=== PATIENT | male | born 1940 | race Caucasian/White ===

== ENCOUNTER 2016-06-22 11:18 | Emergency (ER) | payer MEDICARE, BC ==
--- NOTE | 2016-06-22 11:38 | ED.ADGEN ---
Adult General HPI HPI Patient is a 76-year-old man, history of hypertension, type 2 diabetes mellitus , with a recent diagnosis of colon cancer several months ago for which he has not sought treatment, who presents the emergency department via EMS with report of progressive weakness. Patient states that he's become progressively weaker, describes it as a weakness all over, and today his was unable to help him out of bed. He states he has been expressing diarrhea, also some abdominal cramping and pain, no nausea, no vomiting, states he has had something of a decreased appetite, denies any chest pain or shortness breath. Patient noted be in atrial fibrillation by EMS, he has no history of atrial fibrillation per his report. Patient states he has been compliant with his medications but he is a limited historian, he is cared for by his . Patient is able to state the date and place. Denies any focal weakness numbness or tingling, any injuries. No vision changes or headache. Review of Systems Review of Systems Constitutional: Denies fever or chills [] generalized weakness. Eyes: Denies change in visual acuity, redness, or eye pain [] HENT: Denies nasal congestion or sore throat [] Respiratory: Denies cough or shortness of breath [] Cardiovascular: No additional information not addressed in HPI [] GI: Abdominal cramping, diarrhea, no nausea, vomiting bloody stools or bloody emesis. : Denies dysuria or hematuria [] Musculoskeletal: Denies back pain or joint pain [] Integument: Denies rash or skin lesions [] Neurologic: Denies headache, focal weakness or sensory changes [] Endocrine: Denies polyuria or polydipsia [] Current Medications Current Medications Current Medications Medications (Trade) Dose Ordered Sig/Connor Start Time Stop Time Status Last Admin Dose Admin Ceftriaxone Sodium 1 gm/ Sodium Chloride 50 ml @ 100 mls/hr 1X ONCE 06/22/16 16:30 06/22/16 16:59 Iohexol 75 ml 75 ml 1X ONCE 06/22/16 12:45 06/22/16 12:46 DC 06/22/16 14:09 75 ML Metronidazole (Flagyl Premix) 100 ml @ 200 mls/hr 1X ONCE 06/22/16 16:30 06/22/16 16:59 Potassium Chloride 40 meq 40 meq 1X ONCE 06/22/16 14:30 06/22/16 14:31 DC 06/22/16 14:30 40 MEQ Potassium Chloride/Sodium Chloride (KCl 40 Meq-NS 1,000 ml Iv Soln) 1,000 ml @ 75 mls/hr 1X ONCE 06/22/16 14:00 06/23/16 03:19 06/22/16 13:48 75 MLS/HR Allergies Allergies Allergies Coded Allergies Type Severity Reaction Last Updated Verified No Known Drug Allergies 06/22/16 No Physical Exam Physical Exam Constitutional: Well developed, well nourished, no acute distress, ill in appearance. HENT: Normocephalic, atraumatic, bilateral external ears normal, oropharynx moist, no oral exudates, nose normal. [] Eyes: PERRLA, EOMI, conjunctiva normal, no discharge. [] Neck: Normal range of motion, no tenderness, supple, no stridor. [] Cardiovascular: Regular rhythm, S1, S2, no rubs or gallops, soft heart sounds. [ ] Lungs & Thorax: Diminished breath sounds at bases bilaterally, mild scattered wheezing. No rales. [] Abdomen: Bowel sounds normal, soft, obese, mild tenderness diffusely, no rebound , rigidity, no guarding, no masses, no pulsatile masses. [] Skin: Warm, dry, no erythema, no rash. Psych of erythema, and small ulcer right buttock. Back: No tenderness, no CVA tenderness. [] Extremities: No tenderness, no cyanosis, no clubbing, ROM intact, patient with erythema and swelling noted to the right lower extremity, with a healing ulcer noted on the lateral aspect of the right foot, which is chronic per the patient. Neurologic: Alert and oriented X 3, normal motor function, normal sensory function, no focal deficits noted. [] Psychologic: Affect normal, judgement normal, mood normal. [] Current Patient Data Vital Signs Vital Signs Date Time Temp Pulse Resp B/P Pulse Ox O2 Delivery O2 Flow Rate FiO2 06/22/16 15:32 93 14 136/50 96 06/22/16 11:18 98.7 Room Air Lab Results Laboratory Tests Test 06/22/16 12:30 06/22/16 12:55 06/22/16 13:16 White Blood Count 19.7x10^3/uL (4.0-11.0) H Red Blood Count 4.13x10^6/uL (4.30-5.70) L Hemoglobin 13.1g/dL (13.0-17.5) Hematocrit 38.6% (39.0-53.0) L Mean Corpuscular Volume 94fL (79-100) Mean Corpuscular Hemoglobin 32pg (25-35) Mean Corpuscular Hemoglobin Concent 34g/dL (31-37) Red Cell Distribution Width 13.7% (11.5-14.5) Platelet Count 394x10^3/uL (140-400) Neutrophils (%) (Auto) 74% (31-73) H Lymphocytes (%) (Auto) 17% (24-48) L Monocytes (%) (Auto) 8% (0-9) Eosinophils (%) (Auto) 1% (0-3) Basophils (%) (Auto) 1% (0-3) Neutrophils # (Auto) 14.5x10^3uL (1.8-7.7) H Lymphocytes # (Auto) 3.4x10^3/uL (1.0-4.8) Monocytes # (Auto) 1.5x10^3/uL (0.0-1.1) H Eosinophils # (Auto) 0.1x10^3/uL (0.0-0.7) Basophils # (Auto) 0.2x10^3/uL (0.0-0.2) Segmented Neutrophils % 67% (35-66) H Band Neutrophils % 2% (0-9) Lymphocytes % 20% (24-48) L Monocytes % 9% (0-10) Eosinophils % 1% (0-5) Basophils % 1% (0-3) Toxic Granulation Present Platelet Estimate Adequate (ADEQUATE) Platelet Clumps, EDTA Present Microcytosis Present Urine Collection Type U cath Urine Color Yellow Urine Clarity Clear Urine pH 5.5 Urine Specific Mays <=1.005 Urine Protein 30 mg/dl (NEG-TRACE) Urine Glucose (UA) Negmg/dL (NEG) Urine Ketones (Stick) 15mg/dL (NEG) Urine Blood Small (NEG) Urine Nitrite Neg (NEG) Urine Bilirubin Neg (NEG) Urine Urobilinogen Dipstick 0.2mg/dL (0.2 mg/dL) Urine Leukocyte Esterase Neg (NEG) Urine RBC Rare/HPF (0-2) Urine WBC Rare/HPF (0-4) Urine Squamous Epithelial Cells None/LPF Urine Transitional Epithelial Cells Few/LPF Urine Bacteria 0/HPF (0-FEW) Urine Opiates Screen Neg (NEG) Urine Methadone Screen Neg (NEG) Urine Barbiturates Neg (NEG) Urine Phencyclidine Screen Neg (NEG) Urine Amphetamine/Methamphetamine Neg (NEG) Urine Benzodiazepines Screen Neg (NEG) Urine Cocaine Screen Neg (NEG) Urine Cannabinoids Screen Neg (NEG) Urine Ethyl Alcohol Neg (NEG) Sodium Level 141mmol/L (136-145) Potassium Level 2.3mmol/L (3.5-5.1) *L Chloride Level 101mmol/L (98-107) Carbon Dioxide Level 23mmol/L (21-32) Anion Gap 17 (6-14) H Blood Urea Nitrogen 23mg/dL (8-26) Creatinine 1.9mg/dL (0.7-1.3) H Estimated GFR (Cockcroft-Gault) 34.5 BUN/Creatinine Ratio 12 (6-20) Glucose Level 119mg/dL (70-99) H Lactic Acid Level 0.9mmol/L (0.4-2.0) Calcium Level 8.6mg/dL (8.5-10.1) Magnesium Level 2.4mg/dL (1.8-2.4) Total Bilirubin 0.6mg/dL (0.2-1.0) Aspartate Amino Transferase (AST) 14U/L (15-37) L Alanine Aminotransferase (ALT) 18U/L (16-63) Alkaline Phosphatase 74U/L (46-116) Troponin I Quantitative < 0.017ng/mL (0-0.055) FA-Msg-W-Type Natriuretic Peptide 3627pg/mL (0-449) H Total Protein 7.4g/dL (6.4-8.2) Albumin 2.5g/dL (3.4-5.0) L Albumin/Globulin Ratio 0.5 (1.0-1.7) L EKG EKG EC: Sinus rhythm, heart rate 91 beats minute, APCs noted with right axis deviation, low limb lead voltage noted, contour normality is noted in the anterior septal leads and inferior leads, QTc of 41, W[place] 1:30, QRS of 134, abnormal ECG, does not meet STEMI criteria. As interpreted by me. Radiology/Procedures Radiology/Procedures [] [address] [address] IMAGING REPORT Signed PATIENT: SHAWNA GAY ACCOUNT: [id number] : 1940 LOCATION: ER AGE: 76 SEX: M EXAM STATUS: REG ER ORD. PHYSICIAN: ISMA RAPHAEL DO REASON: Weakness, short of air, congestion, cough PROCEDURE: PORTABLE CHEST 1V Portable AP view CXR: Clinical indications: Weakness. Congestion. Cough. Shortness of air.. Comparison: June 23, 2009. Findings: There is nonvisualization of the left hemidiaphragm which may be due to lordotic positioning. This was seen previously. However, left lung base infiltrate cannot be excluded. Therefore, recommend PA and lateral views of the chest when the patient is clinically capable. The right lung field remains clear. No pleural effusion or pneumothorax is seen. The heart size and mediastinum and pulmonary vasculature and both jaelyn are stable. Old left clavicular fracture is seen. IMPRESSION: Nonvisualization of the left hemidiaphragm most likely due to lordotic positioning. If there is clinical concern for a left lung base infiltrate, then this may be further evaluated with PA and lateral view chest x-ray study when the patient is clinically capable. DICTATED AND SIGNED BY: KENJI DELCID MD DATE: 06/22/16 1321 CC: SARAH MARROQUIN MD; ISMA RAPHAEL DO ~ Impressions: [address] [address] IMAGING REPORT Signed PATIENT: SHAWNA GAY ACCOUNT: [id number] : 1940 LOCATION: ER AGE: 76 SEX: M EXAM STATUS: REG ER ORD. PHYSICIAN: ISMA RAPHAEL DO REASON: swelling/pain PROCEDURE: VENOUS LOWER EXTREMITY RIGHT Right leg venous Doppler study: Clinical indications: Right leg swelling and pain. Findings: Duplex sonography (including casper scale evaluation and color flow and waveform spectral analysis) of the proximal aspect of the greater saphenous vein and proximal aspect of the profunda femoral vein and the entire length of the common femoral and superficial femoral and popliteal veins and the tibioperoneal trunk and the proximal aspect of the posterior tibial and peroneal veins of the right leg was performed. Normal compressibility, augmentation of color Doppler flow after calf compression, and respiratory variation of Doppler flow is seen. Thus, there are no sonographic findings of deep venous thrombosis within these veins. Impression: There are no sonographic findings of deep venous thrombosis within the veins discussed above of the right lower extremity. DICTATED AND SIGNED BY: KENJI DELCID MD DATE: 06/22/16 6137 CC: SARAH MARROQUIN MD; ISMA RAPHAEL DO ~ Course & Med Decision Making Course & Med Decision Making Pertinent Labs and Imaging studies reviewed. (See chart for details) Patient's imaging reveals evidence of diffuse colitis, with underlying malignancy noted, no free air-fluid fluid. Laboratory studies reveal a leukocytosis, with bandemia, dehydration, and a hypokalemia at 2.3. Patient received IV and oral repletion in the ED, I did discuss findings with patient and at bedside, patient is agreeable for admission. I did discuss findings as above with Dr. Espinosa, he is request the patient be transferred for permission to [place], as oncology and GI are not available at [place]. I did discuss findings as above with patient and at bedside, they're agreeable with this transfer, findings as above were discussed with Dr. West of internal medicine, patient accepted to his service as a full admission to the medical telemetry floor. Paperwork was completed. Patient stable on the monitor, in sinus rhythm, waiting transfer to [facility]. Final Impression Final Impression [] Problems: (1) Colitis (2) Hypokalemia (3) Diarrhea Qualifiers: Qualified Code: R19.7 - Diarrhea, unspecified Dragon Disclaimer Dragon Disclaimer This electronic medical record was generated, in whole or in part, using a voice recognition dictation system. Departure Disposition: 05 XFER OTHER Condition: STABLE ISMA RAPHAEL DO Jun 22, 2016 11:38
[2016-06-22] MEDS ORDERED: IOHEXOL 300 MG/ML 75 ML VIAL. IV ONE (12:45)
[2016-06-22 12:47] LABS: BASO # 0.2 x10^3/uL (0.0-0.2); BASO % 1 % (0-3); EOS # 0.1 x10^3/uL (0.0-0.7); EOS % 1 % (0-3); HEMATOCRIT 38.6 % (39.0-53.0); HEMOGLOBIN 13.1 g/dL (13.0-17.5); LYMPH # 3.4 x10^3/uL (1.0-4.8); LYMPH % 17 % (24-48); MEAN CORPUSCULAR HEMOGLOBIN 32 pg (25-35); MEAN CORPUSCULAR HGB CONC 34 g/dL (31-37); MEAN CORPUSCULAR VOLUME 94 fL (79-100); MONO # 1.5 x10^3/uL (0.0-1.1); MONO % 8 % (0-9); NEUT # 14.5 x10^3uL (1.8-7.7); NEUT % 74 % (31-73); PLATELET COUNT 394 x10^3/uL (140-400); RED BLOOD COUNT 4.13 x10^6/uL (4.30-5.70); RED CELL DISTRIBUTION WIDTH 13.7 % (11.5-14.5); WHITE BLOOD COUNT 19.7 x10^3/uL (4.0-11.0)
[2016-06-22 13:17] LABS: BARBITURATES NEG (NEG); BENZODIAZEPINES NEG (NEG); CANNABINOIDS NEG (NEG); COCAINE NEG (NEG); METHADONE NEG (NEG); OPIATES NEG (NEG); PHENCYCLIDINE NEG (NEG)
[2016-06-22 13:18] LABS: AMPHETAMINE/METHAMPHETAMINE NEG (NEG)
[2016-06-22 13:19] LABS: BILIRUBIN,URINE NEG (NEG); CLARITY,URINE CLEAR; COLOR,URINE YELLOW; GLUCOSE,URINE NEG (NEG)
[2016-06-22 13:20] LABS: BACTERIA,URINE 0 /HPF (0-FEW); NITRITE,URINE NEG (NEG); RBC,URINE RARE /HPF (0-2); UROBILINOGEN,URINE 0.2 mg/dL (0.2 mg/dL); WBC,URINE RARE /HPF (0-4)
--- NOTE | 2016-06-22 13:22 | RAD ---
Right leg venous Doppler study: Clinical indications: Right leg swelling and pain. Findings: Duplex sonography (including casper scale evaluation and color flow and waveform spectral analysis) of the proximal aspect of the greater saphenous vein and proximal aspect of the profunda femoral vein and the entire length of the common femoral and superficial femoral and popliteal veins and the tibioperoneal trunk and the proximal aspect of the posterior tibial and peroneal veins of the right leg was performed. Normal compressibility, augmentation of color Doppler flow after calf compression, and respiratory variation of Doppler flow is seen. Thus, there are no sonographic findings of deep venous thrombosis within these veins. Impression: There are no sonographic findings of deep venous thrombosis within the veins discussed above of the right lower extremity.
[2016-06-22 13:26] LABS: % BANDS 2 % (0-9); % BASOS 1 % (0-3); % EOS 1 % (0-5); % LYMPHS 20 % (24-48); % MONOS 9 % (0-10); % SEGS 67 % (35-66); PLATELET CLUMP PRESENT; PLT ESTIMATE ADEQUATE (ADEQUATE)
[2016-06-22 13:27] LABS: MICROCYTOSIS PRESENT; TOXIC GRANULATION PRESENT
--- NOTE | 2016-06-22 13:33 | RAD ---
Portable AP view CXR: Clinical indications: Weakness. Congestion. Cough. Shortness of air.. Comparison: June 23, 2009. Findings: There is nonvisualization of the left hemidiaphragm which may be due to lordotic positioning. This was seen previously. However, left lung base infiltrate cannot be excluded. Therefore, recommend PA and lateral views of the chest when the patient is clinically capable. The right lung field remains clear. No pleural effusion or pneumothorax is seen. The heart size and mediastinum and pulmonary vasculature and both jaelyn are stable. Old left clavicular fracture is seen. IMPRESSION: Nonvisualization of the left hemidiaphragm most likely due to lordotic positioning. If there is clinical concern for a left lung base infiltrate, then this may be further evaluated with PA and lateral view chest x-ray study when the patient is clinically capable.
[2016-06-22 13:51] LABS: ALBUMIN 2.5 g/dL (3.4-5.0); ALBUMIN/GLOBULIN RATIO 0.5 (1.0-1.7); CALCIUM 8.6 mg/dL (8.5-10.1); CREATININE 1.9 mg/dL (0.7-1.3); GFR 34.5; MAGNESIUM 2.4 mg/dL (1.8-2.4); POTASSIUM 2.3 mmol/L (3.5-5.1); TOTAL BILIRUBIN 0.6 mg/dL (0.2-1.0); TOTAL PROTEIN 7.4 g/dL (6.4-8.2)
[2016-06-22] MEDS ORDERED: MULT1TAB52 PO (13:57)
[2016-06-22] MEDS ORDERED: ATOR10TA60 PO (13:58)
[2016-06-22] MEDS ORDERED: LISI-334 PO (13:58)
[2016-06-22] MEDS ORDERED: ASPI325T8 PO (13:58)
[2016-06-22] MEDS ORDERED: AMLO10TA2 PO (13:59)
[2016-06-22] MEDS ORDERED: BUPR-192 PO (13:59)
[2016-06-22] MEDS ORDERED: POTASSIUM CL 40MEQ IN 0.9%NACL 1,000 ML IV ONE (14:00)
[2016-06-22] MEDS ORDERED: HYDR-2867 PO (14:00)
--- NOTE | 2016-06-22 14:23 | RAD ---
Portable AP view CXR: 1401 Clinical indications: Weakness and shortness of air and congestion and cough. Comparison: Same day performed at 1320 IMPRESSION The left hemidiaphragm is better visualized in this view. Therefore, no left lung base infiltrate is evident. No new finding is seen otherwise.
[2016-06-22] MEDS ORDERED: POTASSIUM CHLORIDE 20 MEQ/15 ML ORAL LIQUID. PO ONE (14:30)
--- NOTE | 2016-06-22 15:05 | EKG ---
[address] [address] Test Date: 2016-06-22 Test Time: 11:48:34 Pat Name: SHAWNA GAY Department: Room: Gender: M Android Programmer: ANAI : 1940 Requested By: ISMA RAPHAEL Order Number: [id number] Reading MD: Miguel Reyes Measurements Intervals Arvin Rate: 91 P: 29 RI: 130 QRS: -100 QRSD: 134 T: 156 QT: 390 QTc: 481 Interpretive Statements PROBABLE SINUS RHYTHM RBBB IVCD NON-SPECIFIC ST/T CHANGES Electronically Signed On 06-25-2016 10:00:08 CDT by Miguel Reyes
--- NOTE | 2016-06-22 15:12 | RAD ---
CT study of the abdomen and pelvis with contrast Clinical indications: Abdominal pain and diarrhea and weakness. Recent diagnosis of colon cancer. Comparison: None available. Technique: After IV infusion of 60 cc of Omnipaque 300, helical CT scanning of the abdomen and pelvis was performed. No GI contrast was administered. This may decrease the sensitivity to detect GI tract pathology. PQRS Compliance Statement: One or more of the following individualized dose reduction techniques were utilized for this examination: 1. Automated exposure control 2. Adjustment of the mA and/or kV according to patient size 3. Use of iterative reconstruction technique Findings: The liver and spleen and pancreas are unremarkable. The gallbladder is normal and no extra hepatic biliary ductal dilatation is seen. Left renal cysts are seen. No hydronephrosis or hydroureter or urinary tract stone is evident. No adrenal mass is evident. No focal aneurysmal dilatation of the abdominal aorta is seen. No enlarged abdominal or pelvic lymphadenopathy is seen. The lower pelvis is obscured due to streaking artifact from bilateral hip prostheses. This obscures the urinary bladder and prostate gland and rectum. However, there is diffuse wall thickening of the colon extending down into the rectum. There is diffuse mild pericolonic inflammatory change. The findings are consistent with colitis. Multiple diverticuli of the colon are seen most severely involving the sigmoid colon. Evaluation for an colonic neoplastic process is difficult given the diffuse wall thickening of the colon and the lack of GI contrast distention. No obvious soft tissue mass is seen otherwise. No small bowel obstruction is evident. No free air or pneumatosis intestinalis is seen. There are radiolucent lesions of the posterior superior aspect of the T12 vertebral body and the central aspect of the L3 vertebral body. Differential considerations include metastatic disease or hemangiomas. No lung base consolidation is seen. IMPRESSION: Diffuse colitis. Diverticulosis most severely involving the sigmoid colon. 2 radiolucent lesions of T12 and L3 are seen. Differential considerations include metastatic disease or hemangiomas. This may be further evaluated with outpatient lumbar spine MRI study to include the T12 vertebral body.
[2016-06-22] MEDS ORDERED: cefTRIAXone SODIUM 1 GM VIAL IV ONE (18:01)
[2016-06-22] MEDS ORDERED: IV NORMAL SALINE 50ML 50 ML ONE (18:01)
[2016-06-22 19:17] VITALS: BP 171/69
== END 2016-06-22 19:20 | disposition short-term general hospital (02) ==
LOC: ER 11:18
DX: K52.9 Noninfective gastroenteritis and colitis, unspecified (principal); E87.6 Hypokalemia; R19.7 Diarrhea, unspecified; D72.825 Bandemia
CPT/HCPCS: 36415; 51702; 71010; 74177; 80053; 80305; 81001; 83605; 83735; 83880; 84484; 85007; 85027; 87324; 93005; 93971; 96365; 96366; 96368; 99285; J0696; J3490; Q9967; G0481

== ENCOUNTER 2016-06-27 14:40 | Inpatient (IN) | payer MEDICARE, BC ==
[~2016-06-27] VITALS: Ht 175.3 cm; Wt 99.1 kg
[~2016-06-27 14:40] MED LIST: AMLO10TA2 PO; ASPI325T8 PO; ATOR10TA60 PO; BUPR-192 PO; HYDR-2867 PO; LISI-334 PO; MULT1TAB52 PO
[2016-06-27 15:53] VITALS: BP 127/71
[2016-06-27] MEDS ORDERED: ACET325T9 PO (16:43)
[2016-06-27] MEDS ORDERED: ALBU2.5V14 NEB (16:44)
[2016-06-27] MEDS ORDERED: IPRA3AMP NEB (16:45)
[2016-06-27] MEDS ORDERED: VANC125S PO (16:54)
[2016-06-27] MEDS ORDERED: TAMS0.4C2 PO (16:54)
[2016-06-27] MEDS ORDERED: BUPR150T11 PO (16:57)
[2016-06-27 18:02] VITALS: BP 119/70
[2016-06-27] MEDS ORDERED: ACETAMINOPHEN 325 MG TABLET PO PRN (18:30)
[2016-06-27] MEDS ORDERED: ALBUTEROL SULFATE 2.5 MG/0.5 ML NEBU. NEB PRN (18:30)
[2016-06-27] MEDS: VANCOMYCIN 125 MG/2.5 ML ORAL SOLUTION. PO SCH (20:38)
[2016-06-27] MEDS: ATORVASTATIN CALCIUM 10 MG TABLET. PO SCH (20:38)
[2016-06-27] MEDS: IPRATRPIUM/ALBUTEROL 0.5/2.5MG 3 ML NEBU. NEB SCH (21:00)
[2016-06-28 08:00] VITALS: BP 113/70
[2016-06-28] MEDS ORDERED: DEXTROSE 50% 25 GM / 50ML DISP.SYRIN. IV PRN (08:30)
[2016-06-28] MEDS: IPRATRPIUM/ALBUTEROL 0.5/2.5MG 3 ML NEBU. NEB SCH ×3 (09:00→16:37)
[2016-06-28] MEDS ORDERED: LISINOPRIL 20 MG TABLET PO SCH (09:00)
[2016-06-28] MEDS ORDERED: amLODIPine BESYLATE 10 MG TABLET PO SCH (09:00)
[2016-06-28] MEDS: TAMSULOSIN 0.4 MG CAP.ER.24H. PO SCH (09:31)
[2016-06-28] MEDS: buPROPion XL 150 MG TAB.ER.24H PO SCH (09:31)
[2016-06-28] MEDS: ASPIRIN 325 MG TABLET PO SCH (09:32)
[2016-06-28] MEDS: MULTIVITAMIN with MINERAL TABLET. PO SCH (09:32)
[2016-06-28] MEDS: VANCOMYCIN 125 MG/2.5 ML ORAL SOLUTION. PO SCH ×4 (09:36→20:29)
[2016-06-28 11:32] LABS: BASO # 0.1 x10^3/uL (0.0-0.2); BASO % 1 % (0-3); EOS # 0.1 x10^3/uL (0.0-0.7); EOS % 1 % (0-3); HEMATOCRIT 33.6 % (39.0-53.0); HEMOGLOBIN 11.4 g/dL (13.0-17.5); LYMPH # 1.9 x10^3/uL (1.0-4.8); LYMPH % 22 % (24-48); MEAN CORPUSCULAR HEMOGLOBIN 33 pg (25-35); MEAN CORPUSCULAR HGB CONC 34 g/dL (31-37); MEAN CORPUSCULAR VOLUME 96 fL (79-100); MONO # 0.8 x10^3/uL (0.0-1.1); MONO % 10 % (0-9); NEUT # 5.8 x10^3uL (1.8-7.7); NEUT % 67 % (31-73); PLATELET COUNT 288 x10^3/uL (140-400); RED BLOOD COUNT 3.49 x10^6/uL (4.30-5.70); RED CELL DISTRIBUTION WIDTH 14.3 % (11.5-14.5); WHITE BLOOD COUNT 8.6 x10^3/uL (4.0-11.0)
[2016-06-28 11:58] LABS: ALBUMIN 2.3 g/dL (3.4-5.0); ALBUMIN/GLOBULIN RATIO 0.5 (1.0-1.7); CALCIUM 8.4 mg/dL (8.5-10.1); CREATININE 1.7 mg/dL (0.7-1.3); GFR 39.3; MAGNESIUM 2.1 mg/dL (1.8-2.4); POTASSIUM 3.8 mmol/L (3.5-5.1); TOTAL BILIRUBIN 0.3 mg/dL (0.2-1.0); TOTAL PROTEIN 6.7 g/dL (6.4-8.2)
[2016-06-28] MEDS: INSULIN ASPART 300 UNITS/3 ML INSULN.PEN SQ PRN ×2 (13:15→17:44)
[2016-06-28 16:31] VITALS: BP 157/69
[2016-06-28] MEDS: ATORVASTATIN CALCIUM 10 MG TABLET. PO SCH (20:29)
[2016-06-28] MEDS ORDERED: IPRATRPIUM/ALBUTEROL 0.5/2.5MG 3 ML NEBU. NEB PRN (20:30)
[2016-06-28] MEDS: INSULIN ASPART 300 UNITS/3 ML INSULN.PEN SQ SCH (20:35)
[2016-06-29 08:00] VITALS: BP 121/69
[2016-06-29] MEDS: buPROPion XL 150 MG TAB.ER.24H PO SCH (08:22)
[2016-06-29] MEDS: VANCOMYCIN 125 MG/2.5 ML ORAL SOLUTION. PO SCH ×4 (08:22→19:44)
[2016-06-29] MEDS: ASPIRIN 325 MG TABLET PO SCH (08:22)
[2016-06-29] MEDS: MULTIVITAMIN with MINERAL TABLET. PO SCH (08:23)
[2016-06-29] MEDS: TAMSULOSIN 0.4 MG CAP.ER.24H. PO SCH (08:23)
[2016-06-29] MEDS: LISINOPRIL 10 MG TABLET PO SCH (08:29)
[2016-06-29] MEDS: amLODIPine BESYLATE 5 MG TABLET PO SCH (08:30)
[2016-06-29] MEDS: INSULIN ASPART 300 UNITS/3 ML INSULN.PEN SQ SCH ×4 (08:47→19:43)
[2016-06-29 19:22] VITALS: BP 130/72
[2016-06-29] MEDS: ATORVASTATIN CALCIUM 10 MG TABLET. PO SCH (19:44)
[2016-06-30 05:07] VITALS: BP 113/71
[2016-06-30] MEDS: INSULIN ASPART 300 UNITS/3 ML INSULN.PEN SQ SCH ×4 (07:30→19:19)
[2016-06-30] MEDS: VANCOMYCIN 125 MG/2.5 ML ORAL SOLUTION. PO SCH ×4 (08:38→19:19)
[2016-06-30] MEDS: MULTIVITAMIN with MINERAL TABLET. PO SCH (08:38)
[2016-06-30] MEDS: amLODIPine BESYLATE 5 MG TABLET PO SCH (08:39)
[2016-06-30] MEDS: TAMSULOSIN 0.4 MG CAP.ER.24H. PO SCH (08:39)
[2016-06-30] MEDS: buPROPion XL 150 MG TAB.ER.24H PO SCH (08:39)
[2016-06-30] MEDS: ASPIRIN 325 MG TABLET PO SCH (08:39)
[2016-06-30] MEDS: LISINOPRIL 10 MG TABLET PO SCH (08:39)
[2016-06-30 18:11] VITALS: BP 130/61
[2016-06-30] MEDS: ATORVASTATIN CALCIUM 10 MG TABLET. PO SCH (19:19)
[2016-07-01 05:13] VITALS: BP 118/78
[2016-07-01] MEDS: INSULIN ASPART 300 UNITS/3 ML INSULN.PEN SQ SCH ×4 (07:30→21:00)
[2016-07-01 08:00] VITALS: BP 128/73
[2016-07-01] MEDS: ASPIRIN 325 MG TABLET PO SCH (08:02)
[2016-07-01] MEDS: MULTIVITAMIN with MINERAL TABLET. PO SCH (08:02)
[2016-07-01] MEDS: VANCOMYCIN 125 MG/2.5 ML ORAL SOLUTION. PO SCH ×4 (08:02→21:54)
[2016-07-01] MEDS: TAMSULOSIN 0.4 MG CAP.ER.24H. PO SCH (08:02)
[2016-07-01] MEDS: buPROPion XL 150 MG TAB.ER.24H PO SCH (08:03)
[2016-07-01] MEDS: amLODIPine BESYLATE 5 MG TABLET PO SCH (08:08)
[2016-07-01] MEDS: LISINOPRIL 10 MG TABLET PO SCH (08:08)
[2016-07-01 17:46] VITALS: BP 153/77
[2016-07-01] MEDS: ATORVASTATIN CALCIUM 10 MG TABLET. PO SCH (21:54)
[2016-07-02 08:00] VITALS: BP 119/74
[2016-07-02] MEDS: VANCOMYCIN 125 MG/2.5 ML ORAL SOLUTION. PO SCH ×4 (08:37→19:37)
[2016-07-02] MEDS: ASPIRIN 325 MG TABLET PO SCH (08:41)
[2016-07-02] MEDS: TAMSULOSIN 0.4 MG CAP.ER.24H. PO SCH (08:42)
[2016-07-02] MEDS: amLODIPine BESYLATE 5 MG TABLET PO SCH (08:42)
[2016-07-02] MEDS: MULTIVITAMIN with MINERAL TABLET. PO SCH (08:42)
[2016-07-02] MEDS: buPROPion XL 150 MG TAB.ER.24H PO SCH (08:42)
[2016-07-02] MEDS: LISINOPRIL 10 MG TABLET PO SCH (08:43)
[2016-07-02] MEDS: INSULIN ASPART 300 UNITS/3 ML INSULN.PEN SQ SCH ×4 (11:30→19:40)
[2016-07-02] MEDS: ATORVASTATIN CALCIUM 10 MG TABLET. PO SCH (19:37)
[2016-07-02 19:55] VITALS: BP 131/80
[2016-07-03 06:00] VITALS: BP 141/75
[2016-07-03] MEDS: buPROPion XL 150 MG TAB.ER.24H PO SCH (09:04)
[2016-07-03] MEDS: ASPIRIN 325 MG TABLET PO SCH (09:04)
[2016-07-03] MEDS: MULTIVITAMIN with MINERAL TABLET. PO SCH (09:05)
[2016-07-03] MEDS: LISINOPRIL 10 MG TABLET PO SCH (09:05)
[2016-07-03] MEDS: TAMSULOSIN 0.4 MG CAP.ER.24H. PO SCH (09:05)
[2016-07-03] MEDS: amLODIPine BESYLATE 5 MG TABLET PO SCH (09:05)
[2016-07-03] MEDS: VANCOMYCIN 125 MG/2.5 ML ORAL SOLUTION. PO SCH ×4 (09:06→20:25)
[2016-07-03] MEDS: INSULIN ASPART 300 UNITS/3 ML INSULN.PEN SQ SCH ×4 (11:30→20:26)
[2016-07-03 20:12] VITALS: BP 147/74
[2016-07-03] MEDS: ATORVASTATIN CALCIUM 10 MG TABLET. PO SCH (20:26)
[2016-07-04 05:02] VITALS: BP 155/78
[2016-07-04] MEDS: TAMSULOSIN 0.4 MG CAP.ER.24H. PO SCH (08:28)
[2016-07-04] MEDS: amLODIPine BESYLATE 5 MG TABLET PO SCH (08:28)
[2016-07-04] MEDS: VANCOMYCIN 125 MG/2.5 ML ORAL SOLUTION. PO SCH ×3 (08:28→17:05)
[2016-07-04] MEDS: buPROPion XL 150 MG TAB.ER.24H PO SCH (08:28)
[2016-07-04] MEDS: MULTIVITAMIN with MINERAL TABLET. PO SCH (08:28)
[2016-07-04] MEDS: INSULIN ASPART 300 UNITS/3 ML INSULN.PEN SQ SCH ×4 (08:28→20:14)
[2016-07-04] MEDS: ASPIRIN 325 MG TABLET PO SCH (08:28)
[2016-07-04] MEDS: LISINOPRIL 10 MG TABLET PO SCH (08:28)
[2016-07-04 15:26] VITALS: BP 160/83
[2016-07-04 20:03] VITALS: BP 128/75
[2016-07-04] MEDS: ATORVASTATIN CALCIUM 10 MG TABLET. PO SCH (20:15)
[2016-07-05 05:20] VITALS: BP 148/69
[2016-07-05] MEDS: INSULIN ASPART 300 UNITS/3 ML INSULN.PEN SQ SCH ×4 (07:30→20:07)
[2016-07-05] MEDS: ASPIRIN 325 MG TABLET PO SCH (08:16)
[2016-07-05] MEDS: TAMSULOSIN 0.4 MG CAP.ER.24H. PO SCH (08:16)
[2016-07-05] MEDS: buPROPion XL 150 MG TAB.ER.24H PO SCH (08:16)
[2016-07-05] MEDS: MULTIVITAMIN with MINERAL TABLET. PO SCH (08:17)
[2016-07-05] MEDS: amLODIPine BESYLATE 5 MG TABLET PO SCH (08:18)
[2016-07-05] MEDS: LISINOPRIL 10 MG TABLET PO SCH (08:19)
[2016-07-05] MEDS: ATORVASTATIN CALCIUM 10 MG TABLET. PO SCH (20:08)
[2016-07-05 20:31] VITALS: BP 125/63
[2016-07-06 06:14] VITALS: BP 137/80
[2016-07-06] MEDS: INSULIN ASPART 300 UNITS/3 ML INSULN.PEN SQ SCH ×4 (07:45→21:00)
[2016-07-06] MEDS: MULTIVITAMIN with MINERAL TABLET. PO SCH (08:04)
[2016-07-06] MEDS: ASPIRIN 325 MG TABLET PO SCH (08:04)
[2016-07-06] MEDS: buPROPion XL 150 MG TAB.ER.24H PO SCH (08:04)
[2016-07-06] MEDS: LISINOPRIL 10 MG TABLET PO SCH (08:04)
[2016-07-06] MEDS: amLODIPine BESYLATE 5 MG TABLET PO SCH (08:05)
[2016-07-06] MEDS: TAMSULOSIN 0.4 MG CAP.ER.24H. PO SCH (08:05)
[2016-07-06 20:00] VITALS: BP 130/70
[2016-07-06] MEDS: ATORVASTATIN CALCIUM 10 MG TABLET. PO SCH (21:18)
[2016-07-07 07:26] VITALS: BP 127/68
[2016-07-07] MEDS: INSULIN ASPART 300 UNITS/3 ML INSULN.PEN SQ SCH ×4 (07:30→19:35)
[2016-07-07] MEDS: ASPIRIN 325 MG TABLET PO SCH (08:08)
[2016-07-07] MEDS: buPROPion XL 150 MG TAB.ER.24H PO SCH (08:08)
[2016-07-07] MEDS: MULTIVITAMIN with MINERAL TABLET. PO SCH (08:09)
[2016-07-07] MEDS: amLODIPine BESYLATE 5 MG TABLET PO SCH (08:09)
[2016-07-07] MEDS: TAMSULOSIN 0.4 MG CAP.ER.24H. PO SCH (08:09)
[2016-07-07] MEDS: LISINOPRIL 10 MG TABLET PO SCH (08:09)
--- NOTE | 2016-07-07 10:28 | HP ---
ADMIT DATE: 06/28/2016 SUBJECTIVE: This is a 76-year-old male who was transferred to swing bed status from [facility] where he had been admitted for weakness and was found to have C. difficile colitis, nurse has asked me to see him because he seems quite weak. He had been gotten up by physical therapist, but now seems exhausted according to the nurses. His medical problems include C. difficile colitis, hypertension, mild dementia, chronic alcoholism, history of stroke, paroxysmal atrial fibrillation and heavy smoker. He has a Aguilar catheter, acute respiratory failure with COPD, acute kidney injury, stage III. Most of the Silvis diagnoses. Medications were reviewed. He also received 5 days of Flagyl at [facility]. OBJECTIVE: VITAL SIGNS: Blood pressure 117/61, pulse 102, O2 sat was 93% on 2 liters and temperature not recorded. GENERAL: He is a sleepy 76-year-old in no acute distress. The patient states he does not have any particular complaints, but is tired. HEENT: His tongue was moist. His eyes were clear. NECK: Supple. LUNGS: With some crackles in the bases. CARDIOVASCULAR: Regular rhythm and rate. ABDOMEN: Large, obese and nontender. EXTREMITIES: With a trace of edema. LABORATORY DATA: Pending. ASSESSMENT: 1. Clostridium difficile colitis. 2. Weakness. 3. Type 2 diabetes. PLAN: We will decrease his hypertensive meds. Continue to push fluids, fluid bolus if he needs it. Await the results of his labs. CORNELIA CABRERA DO DR: MARGI/summer JOB#: [id number] / [id number]
[2016-07-07] MEDS: ATORVASTATIN CALCIUM 10 MG TABLET. PO SCH (19:35)
[2016-07-07 19:39] VITALS: BP 119/73
[2016-07-08 05:15] VITALS: BP 134/70
[2016-07-08] MEDS: INSULIN ASPART 300 UNITS/3 ML INSULN.PEN SQ SCH ×4 (07:30→19:50)
[2016-07-08] MEDS: TAMSULOSIN 0.4 MG CAP.ER.24H. PO SCH (08:13)
[2016-07-08] MEDS: MULTIVITAMIN with MINERAL TABLET. PO SCH (08:13)
[2016-07-08] MEDS: amLODIPine BESYLATE 5 MG TABLET PO SCH (08:13)
[2016-07-08] MEDS: buPROPion XL 150 MG TAB.ER.24H PO SCH (08:13)
[2016-07-08] MEDS: ASPIRIN 325 MG TABLET PO SCH (08:13)
[2016-07-08] MEDS: LISINOPRIL 10 MG TABLET PO SCH (08:14)
[2016-07-08 19:09] VITALS: BP 134/69
[2016-07-08] MEDS: ATORVASTATIN CALCIUM 10 MG TABLET. PO SCH (19:50)
[2016-07-09 04:45] VITALS: BP 121/69
[2016-07-09] MEDS: INSULIN ASPART 300 UNITS/3 ML INSULN.PEN SQ SCH ×4 (07:30→19:16)
[2016-07-09] MEDS: MULTIVITAMIN with MINERAL TABLET. PO SCH (08:20)
[2016-07-09] MEDS: amLODIPine BESYLATE 5 MG TABLET PO SCH (08:20)
[2016-07-09] MEDS: ASPIRIN 325 MG TABLET PO SCH (08:20)
[2016-07-09] MEDS: TAMSULOSIN 0.4 MG CAP.ER.24H. PO SCH (08:21)
[2016-07-09] MEDS: buPROPion XL 150 MG TAB.ER.24H PO SCH (08:23)
[2016-07-09] MEDS: LISINOPRIL 10 MG TABLET PO SCH (08:23)
--- NOTE | 2016-07-09 16:26 | RAD ---
Examination: Ultrasound right lower extremity arterial duplex History: History of ulcers in the right foot, right leg pain Comparison: None available Technique: Grayscale, color Doppler 2-D, spectral waveform is in the right lower extremity arterial system was performed Findings: The velocity in the right common femoral artery is 256 cm/s. The velocity in the performed a femoris artery 195 cm/s. Triphasic waveforms identified in the common femoral artery and the profunda femoris artery. There is monophasic waveforms throughout the right lower extremity arterial system from the proximal superficial femoral artery extending to the distally to the dorsalis pedis artery. Diffuse atherosclerotic plaque identified throughout the right lower extremity arterial system Impression: 1. Mild elevated velocity identified in the right common femoral artery about 50% stenosis. 2. Diffuse atherosclerotic calcifications identified throughout the right lower extremity arterial system with monophasic waveforms identified throughout the right lower extremity arterial system from the proximal superficial femoral artery to distally to the level of the dorsalis pedis artery.
[2016-07-09 19:09] VITALS: BP 154/66
[2016-07-09] MEDS: ATORVASTATIN CALCIUM 10 MG TABLET. PO SCH (19:16)
[2016-07-10 06:05] VITALS: BP 159/73
[2016-07-10] MEDS: INSULIN ASPART 300 UNITS/3 ML INSULN.PEN SQ SCH ×4 (07:30→20:35)
[2016-07-10] MEDS: MULTIVITAMIN with MINERAL TABLET. PO SCH (07:48)
[2016-07-10] MEDS: ASPIRIN 325 MG TABLET PO SCH (07:48)
[2016-07-10] MEDS: TAMSULOSIN 0.4 MG CAP.ER.24H. PO SCH (07:48)
[2016-07-10] MEDS: LISINOPRIL 10 MG TABLET PO SCH (07:49)
[2016-07-10] MEDS: amLODIPine BESYLATE 5 MG TABLET PO SCH (07:49)
[2016-07-10] MEDS: buPROPion XL 150 MG TAB.ER.24H PO SCH (07:49)
[2016-07-10 16:00] VITALS: BP 149/75
--- NOTE | 2016-07-10 17:23 | RAD ---
Examination: 3 views of the right foot History: History of right fifth toe ulcer, nonhealing Comparison: 05/18/2009 Findings: Osseous demineralization limits evaluation. Moderate degenerative changes identified in the metatarsophalangeal joints. There is minimal cortical irregularity identified in the head of the fifth metatarsal, best seen on the lateral view. Mild soft tissue swelling identified in the forefoot. Probable ulcer identified in the plantar aspect of the lateral foot at the level of the fifth metatarsal. Impression: 1. Questionable minimal cortical irregularity identified in the head of the fifth metatarsal. If osteomyelitis is a clinical consideration recommend MRI or triphasic bone scan follow-up. 2. Probable ulcer lateral to the fifth metatarsophalangeal joint. 3. Moderate degenerative changes metatarsophalangeal joints
[2016-07-10 17:26] LABS: ALBUMIN 2.7 g/dL (3.4-5.0); ALBUMIN/GLOBULIN RATIO 0.5 (1.0-1.7); C REACTIVE PROTEIN 47.6 mg/L (0-3.3); CALCIUM 8.6 mg/dL (8.5-10.1); CREATININE 1.7 mg/dL (0.7-1.3); GFR 39.3; MAGNESIUM 2.4 mg/dL (1.8-2.4); POTASSIUM 4.4 mmol/L (3.5-5.1); TOTAL BILIRUBIN 0.4 mg/dL (0.2-1.0); TOTAL PROTEIN 7.9 g/dL (6.4-8.2)
[2016-07-10 19:10] VITALS: BP 127/73
[2016-07-10] MEDS: ATORVASTATIN CALCIUM 10 MG TABLET. PO SCH (20:35)
--- NOTE | 2016-07-11 02:29 | PN ---
DATE: SUBJECTIVE: A 76-year-old male who was on swing bed now for 2 weeks. The wound nurse is here today and he had an arterial study yesterday of the right foot, which showed only monophasic waveforms and 50% blockage with considerable peripheral arterial disease in that foot. He has a right diabetic ulcer at the base of the fifth toe. He also has a wound on the dorsal aspect on the top of his right foot. He has a heel blister, unstageable on the right foot as well and a very, very small blister on the left heel. OBJECTIVE: GENERAL: The patient was also seen yesterday. VITAL SIGNS: His blood pressure 149/75, pulse 90, respirations 18 and pulse ox 94% on room air. EXTREMITIES: The right foot has no palpable pulses. Its color is ruborous. It is mildly swollen and with slightly increased warmth. His feeling is negligible and wounds as stated above. The arterial Doppler shows right common femoral artery with 50% stenosis, diffuse atherosclerotic calcifications throughout the arterial system with monophasic waveforms. ASSESSMENT: 1. Extensive peripheral vascular disease. 2. Diabetes foot ulcers, diabetic wounds, onychomycosis. PLAN: 1. X-ray of the right foot to check for osteomyelitis. 2. Based on the findings of the x-ray we will try to set up tomorrow arteriogram with runoff. We will continue to manage his blood pressure and blood sugars. CORNELIA CABRERA DO DR: MARGI/summer JOB#: [id number] / [id number]
[2016-07-11 06:06] VITALS: BP 163/74
[2016-07-11] MEDS: INSULIN ASPART 300 UNITS/3 ML INSULN.PEN SQ SCH (08:06)
[2016-07-11] MEDS: amLODIPine BESYLATE 5 MG TABLET PO SCH (08:34)
[2016-07-11] MEDS: buPROPion XL 150 MG TAB.ER.24H PO SCH (08:34)
[2016-07-11] MEDS: MULTIVITAMIN with MINERAL TABLET. PO SCH (08:35)
[2016-07-11] MEDS: TAMSULOSIN 0.4 MG CAP.ER.24H. PO SCH (08:35)
[2016-07-11] MEDS: LISINOPRIL 10 MG TABLET PO SCH (08:35)
[2016-07-11] MEDS: ASPIRIN 325 MG TABLET PO SCH (08:35)
[2016-07-11 10:38] VITALS: BP 160/77
--- NOTE | 2016-07-11 22:13 | DS ---
DATE OF DISCHARGE: 07/11/2016 CUSTODIAL DISCHARGE/SWING BED DISCHARGE DISPOSITION: Transfer to [facility] for higher level of care due to peripheral vascular disease and nonhealing wounds on the right foot. DISCHARGE DIAGNOSES: 1. Right diabetic foot ulcer base of the fifth metatarsal, questionable osteomyelitis. 2. History of chronic osteomyelitis. 3. 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 4. Type 2 diabetes. 5. Recent admission to [facility] for C. diff colitis, on Levaquin. 6. Hypertension. 7. Mild dementia. 8. Chronic alcoholism, has not drank since being in the hospital. 9. History of stroke. 10. Paroxysmal AFib. 11. Heavy smoker, has not been on tobacco. 12. Chronic obstructive pulmonary disease. 13. Normochromic normocytic anemia. 14. Elevated sed rate of 130 and elevated C-reactive protein and mild hyponatremia. CUSTODIAL COURSE: A 76-year-old male who was admitted after stay at [facility] for weakness and C. diff colitis. He was admitted to shelter on 06/28/2016. He has had has had chronic wounds in his lower extremities, which have not healed since being on shelter. Arterial Doppler was done showing high-grade stenosis of the common femoral artery. Without some type of vascular intervention, I do not believe these wounds will not heal. I did discuss with Dr. Whittington his case today. He has had chronic osteomyelitis. He has been noncompliant with followup as an outpatient and had back in October of 2015 antibiotics for osteomyelitis, IV and then did not take any as an outpatient and did not see Podiatry or Vascular. On the day of discharge, blood pressure was 163/74, temperature 97.5, pulse 90, respirations 20, pulse ox 94% on room air. The patient was seen yesterday. Please see progress note. PLAN: Transfer to [facility] for hopefully a vascular procedure to open up the circulation in his right foot. Continue to take care of all his other medical problems. Records were sent. DISCHARGE MEDICATIONS: Please see MRAD. CORNELIA CABRERA DO DR: MARGI/summer JOB#: [id number] / [id number] neftaly Mckeon Dr.
[2016-07-18] MEDS ORDERED: ASPI-612 PO (14:15)
[2016-07-18] MEDS ORDERED: CLOP75TA PO (14:19)
[2016-07-18] MEDS ORDERED: CALC500T PO (14:19)
[2016-07-18] MEDS ORDERED: MAG355OR11 PO (14:20)
[2016-07-18] MEDS ORDERED: PROC25SU21 RC (14:21)
[2016-07-18] MEDS ORDERED: CHLO25CA9 PO (14:22)
== END 2016-07-11 11:45 | disposition short-term general hospital (02) | DRG 540 ==
LOC: LND 14:51
PROVIDERS: ADMIT Family Medicine; ATTEND Family Medicine
DX: M86.9 Osteomyelitis, unspecified (principal); A04.7 Enterocolitis due to Clostridium difficile; E87.1 Hypo-osmolality and hyponatremia; M86.60 Other chronic osteomyelitis, unspecified site; E11.51 Type 2 diabetes mellitus with diabetic peripheral angiopathy without gangrene; E11.621 Type 2 diabetes mellitus with foot ulcer; B35.1 Tinea unguium; D64.9 Anemia, unspecified; E11.69 Type 2 diabetes mellitus with other specified complication; F03.90 Unspecified dementia, unspecified severity, without behavioral disturbance, psychotic disturbance, mood disturbance, and anxiety; F10.20 Alcohol dependence, uncomplicated; F17.200 Nicotine dependence, unspecified, uncomplicated; I10 Essential (primary) hypertension; I48.0 Paroxysmal atrial fibrillation; J44.9 Chronic obstructive pulmonary disease, unspecified; L97.519 Non-pressure chronic ulcer of other part of right foot with unspecified severity; I70.8 Atherosclerosis of other arteries; Z86.73 Personal history of transient ischemic attack (TIA), and cerebral infarction without residual deficits; Z91.19 Patient's noncompliance with other medical treatment and regimen
CPT/HCPCS: 36415; 73630; 80053; 82947; 83735; 85027; 85651; 86140; 93926; 94640; J1815; J7620; 97110; 97116; 97530; 97535

== ENCOUNTER 2016-07-29 15:53 | Inpatient (IN) | payer MEDICARE, BC ==
[~2016-07-29] VITALS: Ht 175.3 cm; Wt 99.4 kg
[~2016-07-29 15:53] MED LIST changes: +ACET325T9 PO; +ALBU2.5V14 NEB; +ASPI-612 PO; +BUPR150T11 PO; +CALC500T PO; +CHLO25CA9 PO; +CLOP75TA PO; +IPRA3AMP NEB; +MAG355OR11 PO; +PROC25SU21 RC; +TAMS0.4C2 PO; +VANC125S PO
[2016-07-29] MEDS ORDERED: ALBUTEROL SULFATE 2.5 MG/0.5 ML NEBU. NEB PRN (16:15)
[2016-07-29] MEDS ORDERED: chlordiazePOXIDE HCL 25 MG CAPSULE PO PRN (16:15)
[2016-07-29] MEDS ORDERED: PROCHLORPERAZINE 25 MG SUPP.RECT. RC PRN (16:15)
[2016-07-29] MEDS ORDERED: CALCIUM CARBONATE 500 MG TABLET PO PRN (16:15)
[2016-07-29] MEDS ORDERED: DRON2.5C PO (16:17)
[2016-07-29] MEDS ORDERED: ASCO250T3 PO (16:17)
[2016-07-29] MEDS ORDERED: ARIP5TAB13 PO (16:17)
[2016-07-29] MEDS ORDERED: LIDO700A39 TP (16:20)
[2016-07-29] MEDS ORDERED: MAG HYDROX/AL HYDROX/SIMETH 30 ML ORAL.SUSP PO PRN (16:30)
[2016-07-29] MEDS ORDERED: DEXTROSE 50% 25 GM / 50ML DISP.SYRIN. IV PRN (16:30)
[2016-07-29] MEDS: INSULIN ASPART 300 UNITS/3 ML INSULN.PEN SQ SCH ×2 (17:12→19:47)
[2016-07-29] MEDS: IV NORMAL SALINE 1,000ML 1,000 ML IV SCH (18:11)
[2016-07-29 18:28] VITALS: BP 124/75
--- NOTE | 2016-07-29 20:17 | PDOC ---
Exam Dong Demential Exam: Dong Note: Please also refer to the separate dictated note~for this date of service dictated separately.~Patient seen individually. Discussed the patient with Nursing staff reviewed the chart.~Reviewed interim history and current functioning. Reviewed vital signs,~Labs/ Radiology~and current medications noted below. Continue current treatment with the changes noted in the dictated addendum note Assessment: Vital Signs: Vital Signs Date Time Temp Pulse Resp B/P (MAP) Pulse Ox O2 Delivery O2 Flow Rate FiO2 07/29/16 18:28 97.4 82 24 124/75 (91) 96 Room Air Labs: Laboratory Tests Test 07/29/16 19:40 Glucose (Fingerstick) 129 mg/dL (70-99) H Current Medications: Meds: Current Medications Acetaminophen (Tylenol) 650 mg PRN Q6HRS PRN PO PAIN; Start 07/29/16 at 16:15 Albuterol Sulfate (Ventolin) 2.5 mg PRN Q4HRS PRN NEB SHORTNESS OF BREATH; Start 07/29/16 at 16:15 Amlodipine Besylate (Norvasc) 10 mg DAILY PO ; Start 07/30/16 at 09:00 Aspirin (Aspirin Enteric Coated) 81 mg DAILY PO ; Start 07/30/16 at 09:00 Atorvastatin Calcium (Lipitor) 10 mg QHS PO ; Start 07/29/16 at 21:00 Bupropion HCl (Wellbutrin Xl) 300 mg DAILYWBKFT PO ; Start 07/30/16 at 08:00 Calcium Carbonate/ Glycine (Oscal) 500 mg PRN Q3HRS PRN PO HEARTBURN / GAS; Start 07/29/16 at 16:15 Chlordiazepoxide (Librium) 25 mg PRN Q6HRS PRN PO ANXIETY / AGITATION; Start at 16:15 Clopidogrel Bisulfate (Plavix) 75 mg DAILYWBKFT PO ; Start 07/30/16 at 08:00 Prochlorperazine Maleate (Compazine) 25 mg PRN Q12HR PRN RC NAUSEA/VOMITING; Start 07/29/16 at 16:15 Tamsulosin HCl (Flomax) 0.4 mg DAILY PO ; Start 07/30/16 at 09:00 Al Hydroxide/Mg Hydroxide (Mylanta Plus Xs) 30 ml PRN Q3HRS PRN PO HEARTBURN / GAS; Start 07/29/16 at 16:30 Multivitamins/ Calcium (Thera-M Plus) 1 tab DAILY PO ; Start 07/30/16 at 09:00 Insulin Aspart (NovoLOG) 0-5 UNITS QIDACHS SQ ; Start 07/29/16 at 16:30 Dextrose 12.5 gm PRN Q15MIN PRN IV SEE COMMENTS; Start 07/29/16 at 16:30 Aripiprazole (Abilify) 2.5 mg DAILY PO ; Start 07/30/16 at 09:00 Dronabinol (Marinol) 2.5 mg BIDACLD PO ; Start 07/30/16 at 11:30 Lidocaine (Lidoderm) 1 patch DAILY TP ; Start 07/30/16 at 09:00 Ascorbic Acid (Vitamin C) 250 mg BIDACLD PO ; Start 07/30/16 at 09:00 Sodium Chloride 1,000 ml @ 75 mls/hr [id number] IV Last administered on 07/29/16t 18:11; Start 07/29/16 at 17:45 Active Scripts Active Reported Lidocaine 1 Each Adh..patch 1 Each TP DAILY Marinol (Dronabinol) 2.5 Mg Capsule 2.5 Mg PO BIDACLD Ascorbic Acid 250 Mg Tablet 250 Mg PO BIDACLD Abilify (Aripiprazole) 5 Mg Tablet 0.5 Tab PO DAILY Chlordiazepoxide Hcl 25 Mg Capsule 25 Mg PO PRN Q6HRS PRN Compazine (Prochlorperazine Maleate) 25 Mg Supp.rect 25 Mg RC PRN Q12HR PRN Maalox Advanced Suspension (Mag Hydrox/Aluminum Hyd/Simeth) 355 Ml Oral.susp 30 Ml PO PRN Q3HRS PRN Clopidogrel (Clopidogrel Bisulfate) 75 Mg Tablet 1 Tab PO DAILYWBKFT Calcium Carbonate 500 Mg Tablet 500 Mg PO PRN Q3HRS PRN Aspirin Ec (Aspirin) 81 Mg Tablet. 1 Tab PO DAILY LAST DOSE GIVEN: DATE: TIME: NEXT DOSE DUE: DATE: TIME: Tamsulosin Hcl 0.4 Mg Cap.er.24h 1 Cap PO DAILY Albuterol Sulfate Conc Neb Soln (Albuterol Sulfate) 2.5 Mg/0.5 Ml Vial.neb 1 Vial NEB Q4HRS PRN Tylenol (Acetaminophen) 325 Mg Tablet 2 Tab PO PRN Q6HRS PRN LAST DOSE GIVEN: DATE: TIME: NEXT DOSE DUE: DATE: TIME: Bupropion Xl (Bupropion Hcl) 150 Mg Tab.er.24h 1 Tab PO DAILYWBKFT Amlodipine Besylate 10 Mg Tablet 1 Tab PO DAILY Atorvastatin Calcium 10 Mg Tablet 10 Mg PO QHS Multivitamins (Multivitamin) 1 Each Tablet 1 Tab PO DAILY Diagnosis: Problems: (1) Anxiety disorder (2) Dementia, vascular, with depression (3) Major depressive disorder, recurrent episode BETH OSPINA MD Jul 29, 2016 20:17
--- NOTE | 2016-07-29 21:02 | HP ---
ADMIT DATE: 07/29/2016 HISTORY OF PRESENT ILLNESS: The patient is a 76-year-old male patient who was transferred from swing bed where he was noted to be complaining of severe pain in his right shoulder and he was also hypokalemic and we did repeat his lab work showed that his potassium is high at 5.4. He also went into acute on chronic kidney injury with a creatinine that has risen from 1.42 and his inflammatory markers have also dramatically risen with CRP has been 14.7 to 67 and his sedimentation rate has also continued to be high at 120. Given the pain in his right shoulder, hyperkalemia, acute kidney injury and worsening inflammatory markers, a decision was made to admit him to [address] for further evaluation and treatment. We will start him on IV fluid and also start the arrange for total body bone scan as I am concerned that he might have osteomyelitis on his foot and his right shoulder. PAST MEDICAL HISTORY: Significant for severe peripheral vascular disease, hypertension, dementia, history of cerebrovascular accident, atrial fibrillation, chronic obstructive pulmonary disease, chronic kidney disease, gout, diverticulitis with diverticulosis as well as type 2 diabetes. PAST SURGICAL HISTORY: Significant for bilateral hip replacement. He also underwent debridement of his wounds and also angioplasty and stent deployment in his right femoral artery stenosis. ALLERGIES: He has no known drug allergies. MEDICATIONS: He is currently on the following medications: Tylenol 650 mg every 6 hours, albuterol sulfate 2.5 mg by nebulizer every 4 hours, amlodipine 10 mg once a day, aripiprazole 0.5 mg daily, ascorbic acid 250 mg once a day, aspirin 81 mg once a day, atorvastatin, calcium 10 mg once a day, Wellbutrin XL 150 mg once a day, calcium carbonate 500 mg every 3 hours, chlordiazepoxide 25 mg every 6 hours, Plavix 75 mg once a day, dronabinol 2.5 mg twice a day, Lidoderm patch on for 12 hours and off for 12 hours, multivitamin 1 tablet once a day, prochlorperazine maleate 25 mg every 12 hours and Flomax 0.4 mg at bedtime. With this, we held his Lasix and metolazone as well as his losartan. FAMILY HISTORY: Positive for diabetes and hypertension. SOCIAL HISTORY: The patient is . He lives at home with his , although he was at rehab center in [facility] before that he was at [facility]. He is a smoker. He has a history of alcohol use. He is apparently incontinent of bowel bladder. PHYSICAL EXAMINATION Bladder: GENERAL: When I examined him today, he looked well and was clearly in no apparent respiratory distress; however, he is pale, but no jaundice, cyanosis, or thyromegaly. No jugular venous distension. No lower limb edema. VITAL SIGNS: Her heart rate was 89, blood pressure was 136/62, temperature was 97.8, respiratory rate 20, and oxygen saturation was 97% on room air. HEAD, EYES, EARS, NOSE, AND THROAT: Showed normocephalic, atraumatic. NECK: Supple. HEART: Showed normal first and second heart sounds with no gallop, rub or murmur. CHEST: Clear to auscultation. No crepitation or rhonchi. ABDOMEN: Distended, soft, nontender. No guarding or rigidity. No organomegaly. Hernial orifices intact. Bowel sounds normal. NEUROLOGIC: He was demented, but without any obvious lateralizing sign. All his cranial nerves are intact. He moves left upper extremity to much good extent than his upper extremity because of severe pain in his right shoulder. The x-ray, which consistent with rotator cuff tear. He is mostly bed bound and chair bound. He has multiple wounds in his right foot covered with dressing. LABORATORY DATA: Today showed that his white cell count was 9200, hemoglobin 8.8, hematocrit 26, MCV 94 and platelet count of 330,000. His chemistry this morning showed a serum sodium 137, potassium 5.4, chloride 104, bicarbonate 23, anion gap of 10, BUN 22, creatinine 2. Estimated GFR was 33 mL per minute. His glucose was 100, calcium was 8.7. Total bilirubin, AST, ALT, alkaline phosphatase were normal. His C-reactive protein was 67. Total protein 7.6, albumin 2. TSH was 4.3. His sedimentation rate was 120 mm per hour. IMPRESSION: In summary, this is a 76-year-old male patient who was transferred to [address] [place] [address] for acute care with hyperkalemia, acute on chronic kidney injury, worsening inflammatory markers concerning for possibility of osteomyelitis given the wounds in his right foot and severe pain in his right shoulder. PLAN: My plan is to start him on to hold his diuretics and losartan. I will start him on normal saline and repeat his labs tomorrow. We will also arrange for him to have bone scan and decide on further management accordingly. SALINA TERRAZAS MD DR: DIXIE/summer JOB#: [id number] / [id number]
[2016-07-29] MEDS: ATORVASTATIN CALCIUM 10 MG TABLET. PO SCH (21:26)
[2016-07-29] MEDS: ACETAMINOPHEN 325 MG TABLET PO PRN (21:26)
[2016-07-29 23:37] VITALS: BP 102/54
[2016-07-30 04:55] VITALS: BP 103/61
[2016-07-30] MEDS: IV NORMAL SALINE 1,000ML 1,000 ML IV SCH ×2 (06:14→20:26)
[2016-07-30 06:16] LABS: BASO # 0.1 x10^3/uL (0.0-0.2); BASO % 1 % (0-3); EOS # 0.2 x10^3/uL (0.0-0.7); EOS % 2 % (0-3); HEMATOCRIT 24.9 % (39.0-53.0); HEMOGLOBIN 8.5 g/dL (13.0-17.5); LYMPH # 2.5 x10^3/uL (1.0-4.8); LYMPH % 30 % (24-48); MEAN CORPUSCULAR HEMOGLOBIN 32 pg (25-35); MEAN CORPUSCULAR HGB CONC 34 g/dL (31-37); MEAN CORPUSCULAR VOLUME 94 fL (79-100); MONO # 0.9 x10^3/uL (0.0-1.1); MONO % 10 % (0-9); NEUT # 4.6 x10^3uL (1.8-7.7); NEUT % 56 % (31-73); PLATELET COUNT 314 x10^3/uL (140-400); RED BLOOD COUNT 2.65 x10^6/uL (4.30-5.70); RED CELL DISTRIBUTION WIDTH 13.7 % (11.5-14.5); WHITE BLOOD COUNT 8.2 x10^3/uL (4.0-11.0)
[2016-07-30 06:27] LABS: CALCIUM 8.4 mg/dL (8.5-10.1); CREATININE 2.5 mg/dL (0.7-1.3); GFR 25.2; POTASSIUM 4.8 mmol/L (3.5-5.1)
[2016-07-30] MEDS: INSULIN ASPART 300 UNITS/3 ML INSULN.PEN SQ SCH ×4 (07:30→20:56)
[2016-07-30] MEDS: CLOPIDOGREL BISULFATE 75 MG TABLET PO SCH (08:57)
[2016-07-30] MEDS: buPROPion XL 300 MG TAB.ER.24H. PO SCH (08:57)
[2016-07-30] MEDS: ARIPiprazole 5 MG TABLET PO SCH (08:58)
[2016-07-30] MEDS: ASPIRIN ENTERIC COATED 81 MG TABLET.DR. PO SCH (08:58)
[2016-07-30] MEDS: TAMSULOSIN 0.4 MG CAP.ER.24H. PO SCH (08:58)
[2016-07-30] MEDS: amLODIPine BESYLATE 10 MG TABLET PO SCH (08:59)
[2016-07-30] MEDS: MULTIVITAMIN with MINERAL TABLET. PO SCH (08:59)
[2016-07-30] MEDS: ASCORBIC ACID 500 MG TABLET PO SCH ×3 (09:01→17:51)
[2016-07-30] MEDS: LIDOCAINE (700MG/PATCH) PATCH. TP SCH (09:02)
[2016-07-30 10:41] VITALS: BP 110/66
[2016-07-30] MEDS: DRONABINOL 2.5 MG CAPSULE PO SCH ×2 (13:17→17:51)
[2016-07-30 14:21] VITALS: BP 110/57
--- NOTE | 2016-07-30 16:13 | RAD ---
Three-phase bone scan, 07/30/2016: History: Multiple foot wounds, shoulder pain Imaging of both feet was performed following IV injection of 26 mCi of technetium 99m MDP. The dynamic flow study demonstrates generalized hyperemia involving the right foot compared to the left. This is also evident on the blood pool phase. The delayed images demonstrate multiple foci of avid uptake of the radionuclide in the right foot. These foci of increased activity are more intense than on the blood pool phase. There is involvement of all of the toes near the MTP joint levels as well as the distal aspect of the great toe. There is increased activity at the midfoot level and the right anterolateral aspect degree in the region of the ankle joint. There is a lesser degree of increased activity at multiple levels in the left foot including the great toe, distal second and third metatarsals and the midfoot level. Delayed whole body imaging was also performed as requested. There is mildly increased activity at both acromioclavicular joint levels and at the right glenohumeral joint level, likely arthritic in nature. There is increased activity at the right sternoclavicular joint level which is probably on an arthritic basis. There are minimal scattered areas of increased activity in the lower thoracic and lumbar spine, likely arthritic in nature. There is moderately increased activity at the right knee which may be arthritic or posttraumatic. Photon deficient areas at both hips are compatible with the presence of hip prostheses. IMPRESSION: 1. Multiple foci of abnormal activity in the right foot as described above compatible with osteomyelitis. Neuropathic changes may be contributing to this appearance. 2. A lesser degree of abnormal activity at multiple foci in the left foot may be neuropathic and/or arthritic. Correlation with left foot radiographs is suggested, if clinically indicated. 3. Moderately increased activity at the right knee may be on a posttraumatic or arthritic basis. 4. Additional scattered foci of mildly increased activity in the spine, both shoulders and right sternoclavicular joint regions are probably arthritic in nature.
[2016-07-30] MEDS: VANCOMYCIN PER PHARMACY MC PRN (17:32)
[2016-07-30] MEDS ORDERED: VANCOMYCIN 2 GM in IV NORMAL SALINE 500ML 500 ML IV ONE ×4 (18:00)
--- NOTE | 2016-07-30 19:42 | PDOC ---
Exam Dong Demential Exam: Dong Note: Please also refer to the separate dictated note~for this date of service dictated separately.~Patient seen individually. Discussed the patient with Nursing staff reviewed the chart.~Reviewed interim history and current functioning. Reviewed vital signs,~Labs/ Radiology~and current medications noted below. Continue current treatment with the changes noted in the dictated addendum note Assessment: Vital Signs: Vital Signs Date Time Temp Pulse Resp B/P (MAP) Pulse Ox O2 Delivery O2 Flow Rate FiO2 07/30/16 14:21 98.3 85 20 110/57 (74) 95 Room Air I&O Intake and Output 07/30/16 07:00 Intake Total 2146 ml Balance 2146 ml Intake Oral 1380 ml IV Total 766 ml # Voids 6 Labs: Laboratory Tests Test 07/30/16 05:35 07/30/16 07:13 07/30/16 11:28 07/30/16 16:28 White Blood Count 8.2 x10^3/uL (4.0-11.0) Red Blood Count 2.65 x10^6/uL (4.30-5.70) L Hemoglobin 8.5 g/dL (13.0-17.5) L Hematocrit 24.9 % (39.0-53.0) L Mean Corpuscular Volume 94 fL (79-100) Mean Corpuscular Hemoglobin 32 pg (25-35) Mean Corpuscular Hemoglobin Concent 34 g/dL (31-37) Red Cell Distribution Width 13.7 % (11.5-14.5) Platelet Count 314 x10^3/uL (140-400) Neutrophils (%) (Auto) 56 % (31-73) Lymphocytes (%) (Auto) 30 % (24-48) Monocytes (%) (Auto) 10 % (0-9) H Eosinophils (%) (Auto) 2 % (0-3) Basophils (%) (Auto) 1 % (0-3) Neutrophils # (Auto) 4.6 x10^3uL (1.8-7.7) Lymphocytes # (Auto) 2.5 x10^3/uL (1.0-4.8) Monocytes # (Auto) 0.9 x10^3/uL (0.0-1.1) Eosinophils # (Auto) 0.2 x10^3/uL (0.0-0.7) Basophils # (Auto) 0.1 x10^3/uL (0.0-0.2) Sodium Level 133 mmol/L (136-145) L Potassium Level 4.8 mmol/L (3.5-5.1) Chloride Level 101 mmol/L (98-107) Carbon Dioxide Level 21 mmol/L (21-32) Anion Gap 11 (6-14) Blood Urea Nitrogen 27 mg/dL (8-26) H Creatinine 2.5 mg/dL (0.7-1.3) H Estimated GFR (Cockcroft-Gault) 25.2 Glucose Level 95 mg/dL (70-99) Calcium Level 8.4 mg/dL (8.5-10.1) L Glucose (Fingerstick) 90 mg/dL (70-99) 97 mg/dL (70-99) 94 mg/dL (70-99) Current Medications: Meds: Current Medications Acetaminophen (Tylenol) 650 mg PRN Q6HRS PRN PO PAIN Last administered on 21:26; Start 07/29/16 at 16:15 Albuterol Sulfate (Ventolin) 2.5 mg PRN Q4HRS PRN NEB SHORTNESS OF BREATH; Start 07/29/16 at 16:15 Amlodipine Besylate (Norvasc) 10 mg DAILY PO Last administered on 07/30/16 08: 59; Start 07/30/16 at 09:00 Aspirin (Aspirin Enteric Coated) 81 mg DAILY PO Last administered on 07/30/16 08:58; Start 07/30/16 at 09:00 Atorvastatin Calcium (Lipitor) 10 mg QHS PO Last administered on 07/29/16 21:26 ; Start 07/29/16 at 21:00 Bupropion HCl (Wellbutrin Xl) 300 mg DAILYWBKFT PO Last administered on 08:57; Start 07/30/16 at 08:00 Calcium Carbonate/ Glycine (Oscal) 500 mg PRN Q3HRS PRN PO HEARTBURN / GAS; Start 07/29/16 at 16:15 Chlordiazepoxide (Librium) 25 mg PRN Q6HRS PRN PO ANXIETY / AGITATION; Start at 16:15 Clopidogrel Bisulfate (Plavix) 75 mg DAILYWBKFT PO Last administered on 08:57; Start 07/30/16 at 08:00 Prochlorperazine Maleate (Compazine) 25 mg PRN Q12HR PRN RC NAUSEA/VOMITING; Start 07/29/16 at 16:15 Tamsulosin HCl (Flomax) 0.4 mg DAILY PO Last administered on 07/30/16 08:58; Start 07/30/16 at 09:00 Al Hydroxide/Mg Hydroxide (Mylanta Plus Xs) 30 ml PRN Q3HRS PRN PO HEARTBURN / GAS; Start 07/29/16 at 16:30 Multivitamins/ Calcium (Thera-M Plus) 1 tab DAILY PO Last administered on 08:59; Start 07/30/16 at 09:00 Insulin Aspart (NovoLOG) 0-5 UNITS QIDACHS SQ ; Start 07/29/16 at 16:30 Dextrose 12.5 gm PRN Q15MIN PRN IV SEE COMMENTS; Start 07/29/16 at 16:30 Aripiprazole (Abilify) 2.5 mg DAILY PO Last administered on 07/30/16 08:58; Start 07/30/16 at 09:00 Dronabinol (Marinol) 2.5 mg BIDACLD PO Last administered on 07/30/16 17:51; Start 07/30/16 at 11:30 Lidocaine (Lidoderm) 1 patch DAILY TP Last administered on 07/30/16 09:02; Start 07/30/16 at 09:00 Ascorbic Acid (Vitamin C) 250 mg BIDACLD PO Last administered on 07/30/16 17:51 ; Start 07/30/16 at 09:00 Sodium Chloride 1,000 ml @ 100 mls/hr Q10H IV Last administered on 07/30/16 06 :14; Start 07/29/16 at 17:45 Vancomycin HCl (Vanco Per Pharmacy) 1 each PRN DAILY PRN MC SEE COMMENTS Last administered on 07/30/16 17:32; Start 07/30/16 at 17:15 Meropenem 500 mg/ Sodium Chloride 50 ml @ 100 mls/hr Q8H IV ; Start 07/30/16 at 20:00 Vancomycin HCl 2 gm/Sodium Chloride 500 ml @ 250 mls/hr 1X ONCE IV ; Start 07/30/16 at 18:00; Stop 07/30/16 at 18:00; Status DC Vancomycin HCl 1.5 gm/Sodium Chloride 500 ml @ 250 mls/hr Q24H IV ; Start at 20:00; Stop 07/31/16 at 20:00; Status DC Vancomycin HCl 2 gm/Sodium Chloride 500 ml @ 250 mls/hr 1X ONCE IV Last administered on 07/30/16t 18:14; Start 07/30/16 at 18:00; Stop 07/30/16 at 19:59 Vancomycin HCl 1.5 gm/Sodium Chloride 500 ml @ 250 mls/hr Q24H IV ; Start at 18:00 Vancomycin HCl 1 each 1X ONCE MC ; Start 08/01/16 at 17:30; Stop 08/01/16 at 17: 31 Active Scripts Active Reported Lidocaine 1 Each Adh..patch 1 Each TP DAILY Marinol (Dronabinol) 2.5 Mg Capsule 2.5 Mg PO BIDACLD Ascorbic Acid 250 Mg Tablet 250 Mg PO BIDACLD Abilify (Aripiprazole) 5 Mg Tablet 0.5 Tab PO DAILY Chlordiazepoxide Hcl 25 Mg Capsule 25 Mg PO PRN Q6HRS PRN Compazine (Prochlorperazine Maleate) 25 Mg Supp.rect 25 Mg RC PRN Q12HR PRN Maalox Advanced Suspension (Mag Hydrox/Aluminum Hyd/Simeth) 355 Ml Oral.susp 30 Ml PO PRN Q3HRS PRN Clopidogrel (Clopidogrel Bisulfate) 75 Mg Tablet 1 Tab PO DAILYWBKFT Calcium Carbonate 500 Mg Tablet 500 Mg PO PRN Q3HRS PRN Aspirin Ec (Aspirin) 81 Mg Tablet.dr 1 Tab PO DAILY LAST DOSE GIVEN: DATE: TIME: NEXT DOSE DUE: DATE: TIME: Tamsulosin Hcl 0.4 Mg Cap.er.24h 1 Cap PO DAILY Albuterol Sulfate Conc Neb Soln (Albuterol Sulfate) 2.5 Mg/0.5 Ml Vial.neb 1 Vial NEB Q4HRS PRN Tylenol (Acetaminophen) 325 Mg Tablet 2 Tab PO PRN Q6HRS PRN LAST DOSE GIVEN: DATE: TIME: NEXT DOSE DUE: DATE: TIME: Bupropion Xl (Bupropion Hcl) 150 Mg Tab.er.24h 1 Tab PO DAILYWBKFT Amlodipine Besylate 10 Mg Tablet 1 Tab PO DAILY Atorvastatin Calcium 10 Mg Tablet 10 Mg PO QHS Multivitamins (Multivitamin) 1 Each Tablet 1 Tab PO DAILY Diagnosis: Problems: (1) Anxiety disorder (2) Dementia, vascular, with depression (3) Major depressive disorder, recurrent episode BETH OSPINA MD Jul 30, 2016 19:42
[2016-07-30 20:17] VITALS: BP 128/78
[2016-07-30] MEDS: MEROPENEM 500 MG in IV NORMAL SALINE 50ML 50 ML IV SCH (20:26)
[2016-07-30] MEDS: ATORVASTATIN CALCIUM 10 MG TABLET. PO SCH (20:26)
[2016-07-30] MEDS: ACETAMINOPHEN 325 MG TABLET PO PRN (20:27)
[2016-07-30 23:21] VITALS: BP 122/56
--- NOTE | 2016-07-31 03:40 | PN ---
DATE: 07/30/2016 SUBJECTIVE: The patient was admitted to [address] [place] [address] yesterday as he has continued to complain of severe pain in his right shoulder. He was found also to have hyperkalemic with acute kidney injury. Creatinine is going up. His inflammatory markers are also worsening concerning for possible osteomyelitis given his open wounds. Therefore, the patient was transferred to [address] [place] [address], was started on IV fluid, and arrangement has been made for him to have total body bone scan. When I saw him this afternoon, he was sitting comfortably in his recliner, eating his lunch, in no apparent distress. Continued to complain of severe pain in his right shoulder. Unfortunately, his kidney function, particularly his BUN and creatinine has continued to rise despite treatment with IV fluids and we did actually scan his bladder and showed that he is retaining urine, so we will plan to put an indwelling Agiular catheter. Once we have the results of the bone scan we will decide on further management accordingly. OBJECTIVE: GENERAL: When I examined him, he looked pale, but not jaundiced, cyanosis, or thyromegaly. No jugular venous distention. No limb edema. VITAL SIGNS: His heart rate was 85, blood pressure was 110/66, temperature was 97.9, respiratory rate 20, and oxygen saturation was 97% on room air. HEAD, EYES, EARS, NOSE AND THROAT: Showed normocephalic, atraumatic. NECK: Supple. HEART: Showed normal first and second heart sounds with no gallop, rub or murmur. CHEST: Clear to auscultation. No crepitation or rhonchi. ABDOMEN: Distended, soft, nontender. No guarding or rigidity. No organomegaly. Hernial orifices intact. Bowel sounds normal. NEUROLOGIC: He was hard of hearing, but otherwise cranial nerves intact. He moves his left upper extremity to much good extent than his right upper extremity because of severe pain and possible rotator cuff tear. He has multiple wounds in his right foot. He is status post revascularization with stent deployment to his stenotic common femoral artery. His intake over the last 24 hours was 2146, no output was recorded. LABORATORY DATA: His lab work this morning showed a serum sodium 133, potassium 4.8, chloride 101, bicarbonate 21, anion gap of 11, BUN 27, creatinine 2.5, blood sugar was 129, calcium was 8.4. White cell count was 8200, hemoglobin 8.5, hematocrit 24, MCV 94, and platelet count of 314,000 with normal manual differential. His lab work as of yesterday showed that his BUN was 22, creatinine 2. His potassium yesterday was 5.4, today is 4.8. His C-reactive protein has risen from 14.7 to 67 mg/dL. His sedimentation rate continues to be high at more than 120 mm per hour. ASSESSMENT: Acute kidney injury with BUN and creatinine are worsening. However, he has also urinary retention, so I will arrange for him to have an indwelling Aguilar catheter. Hyperkalemia, resolved. His potassium is down to 4.8, anorexia and poor oral intake for which he continued his Marinol 2.5 mg twice a day, depression for which he is followed by Dr. Weber and he is now on aripiprazole as well as Wellbutrin. Hyperlipidemia for which he is on atorvastatin 10 mg at bedtime, type 2 diabetes, insulin requiring for which he is on insulin sliding scale. Chronic obstructive pulmonary disease, benign prostatic hypertrophy for which he is on Flomax. Hypertension for which he is on amlodipine 10 mg once a day. Peripheral vascular disease, status post stenting with right common femoral artery for which he is on Plavix 75 mg once a day. PLAN: To monitor his lab work and await the results of the bone scan to decide on further management. SALINA TERRAZAS MD DR: DIXIE/summer JOB#: [id number] / [id number]
[2016-07-31 06:00] VITALS: BP 115/46
[2016-07-31] MEDS: MEROPENEM 500 MG in IV NORMAL SALINE 50ML 50 ML IV SCH ×3 (06:01→19:53)
[2016-07-31] MEDS: IV NORMAL SALINE 1,000ML 1,000 ML IV SCH ×3 (06:01→19:53)
[2016-07-31 06:47] LABS: ALBUMIN 2.6 g/dL (3.4-5.0); ALBUMIN/GLOBULIN RATIO 0.6 (1.0-1.7); CALCIUM 8.3 mg/dL (8.5-10.1); CREATININE 1.9 mg/dL (0.7-1.3); GFR 34.5; POTASSIUM 4.6 mmol/L (3.5-5.1); TOTAL BILIRUBIN 0.4 mg/dL (0.2-1.0); TOTAL PROTEIN 7.2 g/dL (6.4-8.2)
[2016-07-31] MEDS: INSULIN ASPART 300 UNITS/3 ML INSULN.PEN SQ SCH ×4 (07:30→19:54)
[2016-07-31] MEDS: CLOPIDOGREL BISULFATE 75 MG TABLET PO SCH (08:57)
[2016-07-31] MEDS: ASPIRIN ENTERIC COATED 81 MG TABLET.DR. PO SCH (08:57)
[2016-07-31] MEDS: amLODIPine BESYLATE 10 MG TABLET PO SCH (08:57)
[2016-07-31] MEDS: TAMSULOSIN 0.4 MG CAP.ER.24H. PO SCH (08:58)
[2016-07-31] MEDS: MULTIVITAMIN with MINERAL TABLET. PO SCH (08:59)
[2016-07-31] MEDS: ARIPiprazole 5 MG TABLET PO SCH (08:59)
[2016-07-31] MEDS: buPROPion XL 300 MG TAB.ER.24H. PO SCH (08:59)
[2016-07-31] MEDS: LIDOCAINE (700MG/PATCH) PATCH. TP SCH (09:01)
--- NOTE | 2016-07-31 11:13 | PN ---
DATE: 07/29/2016 SUBJECTIVE: This note is a late entry for 07/29/[address] Ospina. This note covers elements not covered in my initial note of 07/29/2016. Per nursing report, the patient has been more awake during the day, and withdrawn, but still confused and depressed. REVIEW OF SYSTEMS: Ambulation impaired. He is quite sedated and tired closing his eyes as I met with him. MENTAL STATUS EXAM: Speech has moderate latency, often responses monosyllabic. No active psychotic symptoms, suicidal or homicidal ideation. Mood and affect are depressed. LABORATORY DATA: Reviewed. IMPRESSION: Unchanged from initial note. PLAN: Continue current psychotropics including Abilify to Augmentin antidepressants. May need to adjust this further, but for now Wellbutrin-XL 300 mg a day is adequate. MAN Britton OSPINA MD DR: MONICO/summer JOB#: [id number] / [id number]
[2016-07-31] MEDS: DRONABINOL 2.5 MG CAPSULE PO SCH ×2 (11:20→17:13)
[2016-07-31] MEDS: ASCORBIC ACID 500 MG TABLET PO SCH ×2 (11:20→17:13)
[2016-07-31 11:33] VITALS: BP 125/65
[2016-07-31 16:00] VITALS: BP 126/66
--- NOTE | 2016-07-31 16:58 | RAD ---
AP chest, 07/31/2016: History: Check PICC placement Comparison is made to a study from 06/22/2016. A right PICC has been inserted extending to the level of the atriocaval junction. The heart size and pulmonary vascularity are normal. No acute infiltrate is seen. There is a small nodule in the left midlung laterally which may be a granuloma. In retrospect it was present on an old study from 06/07/2009. It appears to be of similar size. No acute pulmonary infiltrate is seen. There is no evidence of pleural fluid. IMPRESSION: 1. The right PICC extends to the level of the atriocaval junction. 2. Probable small granuloma in the left lung.
[2016-07-31] MEDS ORDERED: VANCOMYCIN 1.5 GM in IV NORMAL SALINE 500ML 500 ML IV SCH ×2 (18:00→20:00)
[2016-07-31 19:45] VITALS: BP 110/64
[2016-07-31] MEDS: ATORVASTATIN CALCIUM 10 MG TABLET. PO SCH (19:54)
[2016-07-31] MEDS: ACETAMINOPHEN 325 MG TABLET PO PRN (19:54)
--- NOTE | 2016-07-31 21:08 | PDOC ---
Exam Dong Demential Exam: Dong Note: Please also refer to the separate dictated note~for this date of service dictated separately.~Patient seen individually. Discussed the patient with Nursing staff reviewed the chart.~Reviewed interim history and current functioning. Reviewed vital signs,~Labs/ Radiology~and current medications noted below. Continue current treatment with the changes noted in the dictated addendum note Assessment: Vital Signs: Vital Signs Date Time Temp Pulse Resp B/P (MAP) Pulse Ox O2 Delivery O2 Flow Rate FiO2 07/31/16 19:45 97.7 79 20 110/64 (79) 95 Room Air I&O Intake and Output 07/31/16 07:00 Intake Total 3364 ml Output Total 2775 ml Balance 589 ml Intake Oral 1720 ml IV Total 1644 ml Output Urine Total 2775 ml # Voids 3 # Bowel Movements 1 Labs: Laboratory Tests Test 07/31/16 06:03 07/31/16 08:10 07/31/16 11:53 07/31/16 16:53 Sodium Level 134 mmol/L (136-145) L Potassium Level 4.6 mmol/L (3.5-5.1) Chloride Level 104 mmol/L (98-107) Carbon Dioxide Level 21 mmol/L (21-32) Anion Gap 9 (6-14) Blood Urea Nitrogen 22 mg/dL (8-26) Creatinine 1.9 mg/dL (0.7-1.3) H Estimated GFR (Cockcroft-Gault) 34.5 BUN/Creatinine Ratio 12 (6-20) Glucose Level 90 mg/dL (70-99) Calcium Level 8.3 mg/dL (8.5-10.1) L Total Bilirubin 0.4 mg/dL (0.2-1.0) Aspartate Amino Transferase (AST) 18 U/L (15-37) Alanine Aminotransferase (ALT) 22 U/L (16-63) Alkaline Phosphatase 81 U/L (46-116) Total Protein 7.2 g/dL (6.4-8.2) Albumin 2.6 g/dL (3.4-5.0) L Albumin/Globulin Ratio 0.6 (1.0-1.7) L Glucose (Fingerstick) 86 mg/dL (70-99) 103 mg/dL (70-99) H 128 mg/dL (70-99) H Test 07/31/16 19:10 Glucose (Fingerstick) 134 mg/dL (70-99) H Current Medications: Meds: Current Medications Acetaminophen (Tylenol) 650 mg PRN Q6HRS PRN PO PAIN Last administered on 19:54; Start 07/29/16 at 16:15 Albuterol Sulfate (Ventolin) 2.5 mg PRN Q4HRS PRN NEB SHORTNESS OF BREATH; Start 07/29/16 at 16:15 Amlodipine Besylate (Norvasc) 10 mg DAILY PO Last administered on 07/31/16 08: 57; Start 07/30/16 at 09:00 Aspirin (Aspirin Enteric Coated) 81 mg DAILY PO Last administered on 07/31/16 08:57; Start 07/30/16 at 09:00 Atorvastatin Calcium (Lipitor) 10 mg QHS PO Last administered on 07/31/16 19:54 ; Start 07/29/16 at 21:00 Bupropion HCl (Wellbutrin Xl) 300 mg DAILYWBKFT PO Last administered on 08:59; Start 07/30/16 at 08:00 Calcium Carbonate/ Glycine (Oscal) 500 mg PRN Q3HRS PRN PO HEARTBURN / GAS; Start 07/29/16 at 16:15 Chlordiazepoxide (Librium) 25 mg PRN Q6HRS PRN PO ANXIETY / AGITATION; Start at 16:15 Clopidogrel Bisulfate (Plavix) 75 mg DAILYWBKFT PO Last administered on 08:57; Start 07/30/16 at 08:00 Prochlorperazine Maleate (Compazine) 25 mg PRN Q12HR PRN RC NAUSEA/VOMITING; Start 07/29/16 at 16:15 Tamsulosin HCl (Flomax) 0.4 mg DAILY PO Last administered on 07/31/16 08:58; Start 07/30/16 at 09:00 Al Hydroxide/Mg Hydroxide (Mylanta Plus Xs) 30 ml PRN Q3HRS PRN PO HEARTBURN / GAS; Start 07/29/16 at 16:30 Multivitamins/ Calcium (Thera-M Plus) 1 tab DAILY PO Last administered on 08:59; Start 07/30/16 at 09:00 Insulin Aspart (NovoLOG) 0-5 UNITS QIDACHS SQ ; Start 07/29/16 at 16:30 Dextrose 12.5 gm PRN Q15MIN PRN IV SEE COMMENTS; Start 07/29/16 at 16:30 Aripiprazole (Abilify) 2.5 mg DAILY PO Last administered on 07/31/16 08:59; Start 07/30/16 at 09:00 Dronabinol (Marinol) 2.5 mg BIDACLD PO Last administered on 07/31/16 17:13; Start 07/30/16 at 11:30 Lidocaine (Lidoderm) 1 patch DAILY TP Last administered on 07/31/16 09:01; Start 07/30/16 at 09:00; Stop 07/31/16 at 13:30; Status DC Ascorbic Acid (Vitamin C) 250 mg BIDACLD PO Last administered on 07/31/16 17:13 ; Start 07/30/16 at 09:00 Sodium Chloride 1,000 ml @ 100 mls/hr Q10H IV Last administered on 07/31/16 19 :53; Start 07/29/16 at 17:45 Vancomycin HCl (Vanco Per Pharmacy) 1 each PRN DAILY PRN MC SEE COMMENTS Last administered on 07/30/16 17:32; Start 07/30/16 at 17:15 Meropenem 500 mg/ Sodium Chloride 50 ml @ 100 mls/hr Q8H IV Last administered on 07/31/16 19:53; Start 07/30/16 at 20:00 Vancomycin HCl 2 gm/Sodium Chloride 500 ml @ 250 mls/hr 1X ONCE IV ; Start 07/30/16 at 18:00; Stop 07/30/16 at 18:00; Status DC Vancomycin HCl 1.5 gm/Sodium Chloride 500 ml @ 250 mls/hr Q24H IV ; Start at 20:00; Stop 07/31/16 at 20:00; Status DC Vancomycin HCl 2 gm/Sodium Chloride 500 ml @ 250 mls/hr 1X ONCE IV Last administered on 07/30/16 18:14; Start 07/30/16 at 18:00; Stop 07/30/16 at 20:00; Status DC Vancomycin HCl 1.5 gm/Sodium Chloride 500 ml @ 250 mls/hr Q24H IV Last administered on 07/31/16t 18:36; Start 07/31/16 at 18:00 Vancomycin HCl 1 each 1X ONCE MC ; Start 08/01/16 at 17:30; Stop 08/01/16 at 17: 31 Lidocaine (Lidoderm) 2 patch DAILY TP ; Start 08/01/16 at 09:00 Active Scripts Active Reported Lidocaine 1 Each Adh..patch 1 Each TP DAILY Marinol (Dronabinol) 2.5 Mg Capsule 2.5 Mg PO BIDACLD Ascorbic Acid 250 Mg Tablet 250 Mg PO BIDACLD Abilify (Aripiprazole) 5 Mg Tablet 0.5 Tab PO DAILY Chlordiazepoxide Hcl 25 Mg Capsule 25 Mg PO PRN Q6HRS PRN Compazine (Prochlorperazine Maleate) 25 Mg Supp.rect 25 Mg RC PRN Q12HR PRN Maalox Advanced Suspension (Mag Hydrox/Aluminum Hyd/Simeth) 355 Ml Oral.susp 30 Ml PO PRN Q3HRS PRN Clopidogrel (Clopidogrel Bisulfate) 75 Mg Tablet 1 Tab PO DAILYWBKFT Calcium Carbonate 500 Mg Tablet 500 Mg PO PRN Q3HRS PRN Aspirin Ec (Aspirin) 81 Mg Tablet.dr 1 Tab PO DAILY LAST DOSE GIVEN: DATE: TIME: NEXT DOSE DUE: DATE: TIME: Tamsulosin Hcl 0.4 Mg Cap.er.24h 1 Cap PO DAILY Albuterol Sulfate Conc Neb Soln (Albuterol Sulfate) 2.5 Mg/0.5 Ml Vial.neb 1 Vial NEB Q4HRS PRN Tylenol (Acetaminophen) 325 Mg Tablet 2 Tab PO PRN Q6HRS PRN LAST DOSE GIVEN: DATE: TIME: NEXT DOSE DUE: DATE: TIME: Bupropion Xl (Bupropion Hcl) 150 Mg Tab.er.24h 1 Tab PO DAILYWBKFT Amlodipine Besylate 10 Mg Tablet 1 Tab PO DAILY Atorvastatin Calcium 10 Mg Tablet 10 Mg PO QHS Multivitamins (Multivitamin) 1 Each Tablet 1 Tab PO DAILY Diagnosis: Problems: (1) Anxiety disorder (2) Dementia, vascular, with depression (3) Major depressive disorder, recurrent episode BETH OSPINA MD Jul 31, 2016 21:07
[2016-07-31 23:41] VITALS: BP 120/66
--- NOTE | 2016-08-01 01:55 | PN ---
DATE: 07/31/2016 SUBJECTIVE: The patient is resting, slightly propped up in the recliner, very confused, insisting he wants to go home. We explained to him and also his knows that he is having osteomyelitis of his right foot and he is already on IV antibiotics. PHYSICAL EXAMINATION: GENERAL: When I examined him, he looked pale, not jaundiced, cyanosis or thyromegaly. No jugular venous distention. No limb edema. VITAL SIGNS: Her heart rate was 88, blood pressure 125/65, temperature was 97.8, respiratory rate 22, and oxygen saturation was 97%. HEAD, EYES, EARS, NOSE AND THROAT: Showed normocephalic, atraumatic. NECK: Supple. HEART: Showed normal first and second sounds. No gallop, rub or murmur. CHEST: Clear to auscultation. No crepitation or rhonchi. ABDOMEN: Distended, soft, and nontender. NEUROLOGIC: He is awake, alert, responding appropriately. Cranial nerves intact. He moves extremities without difficulty, although he is mostly bedbound and chair bound. His intake over the last 24 hours was 2364, output was 2775. LABORATORY DATA: His most recent white cell count was 8200, hemoglobin 8.5, hematocrit 24.9, MCV 94, and platelet count 314,000. His chemistry showed a serum sodium 134, potassium 4.6, chloride 104, bicarbonate 21, anion gap of 9, BUN 22, creatinine 1.9, estimated GFR was 34 mL per minute. His glucose was 90, calcium was 8.3. Total bilirubin, AST, ALT, alkaline phosphatase were normal. Total protein was 7.2, albumin was 2.6. ASSESSMENT: 1. Acute kidney injury, resolving after we placed a Aguilar catheter and his creatinine today is 1.9, BUN is 20. 2. Hyperkalemia, resolved, his potassium is down to 4.6. 3. Right extremity osteomyelitis, which we started him on IV antibiotic in the form of vancomycin and meropenem. We will arrange for him to have a PICC line placed. 4. Hyperlipidemia for which he is on atorvastatin. 5. Depression. Seen by Dr. Weber and he is now on aripiprazole as well as Wellbutrin. 6. Type 2 diabetes mellitus, insulin requiring, much improved. 7. Chronic obstructive disease, clinically quiescent. 8. Benign prostatic hypertrophy for which he is on Flomax; however, he continued to retain urine and we have placed an indwelling Aguilar catheter. 9. Hypertension, well controlled on amlodipine. 10. Peripheral vascular disease, status post stenting of his right common femoral artery, which is now on Plavix 75 mg once a day. PLAN: To continue with IV fluid, continue with the IV antibiotic. Continue with pain management. We will monitor his lab work closely and with the aim is to transfer him to [facility] for further evaluation and treatment. SALINA TERRAZAS MD DR: DIXIE/summer JOB#: [id number] / [id number]
--- NOTE | 2016-08-01 02:53 | PN ---
DATE: 07/30/2016 PSYCHIATRIC PROGRESS NOTE This is a late entry of 07/30/2016, covers elements not covered in my initial note. SUBJECTIVE: Per nursing report, the patient has been a little more awake and alert during the day, still withdrawn, but subjectively as I met with him he said he felt stronger, but it took him a lot of thinking to say that. He still remains confused with short-term memory deficits. REVIEW OF SYSTEMS: Ambulation impaired. No CV, , pulmonary, eye system symptoms on review. Reliability poor. MENTAL STATUS EXAM: Oriented to himself. Speech moderate latency, often responses monosyllabic. Abstraction fair, computation impaired, language function intact, short term memory is impaired. Mood and affect does show some improvement. LABORATORY DATA: Reviewed. IMPRESSION: Unchanged from initial note. PLAN: Continue Wellbutrin and Abilify at the current dosage, may increase Abilify in due course depending on his progress. BETH OSPINA MD DR: MONICO/summer JOB#: [id number] / [id number]
[2016-08-01] MEDS: MEROPENEM 500 MG in IV NORMAL SALINE 50ML 50 ML IV SCH ×3 (04:42→20:07)
[2016-08-01 05:46] VITALS: BP 109/55
[2016-08-01 06:00] LABS: HEMATOCRIT 23.9 % (39.0-53.0); HEMOGLOBIN 7.8 g/dL (13.0-17.5); RED BLOOD COUNT 2.5 x10^6/uL (4.30-5.70); RED CELL DISTRIBUTION WIDTH 13.6 % (11.5-14.5); WHITE BLOOD COUNT 7.8 x10^3/uL (4.0-11.0)
[2016-08-01 06:24] LABS: ALBUMIN 2.5 g/dL (3.4-5.0); ALBUMIN/GLOBULIN RATIO 0.6 (1.0-1.7); CALCIUM 8.1 mg/dL (8.5-10.1); CREATININE 1.6 mg/dL (0.7-1.3); GFR 42.1; POTASSIUM 4.4 mmol/L (3.5-5.1); TOTAL BILIRUBIN 0.3 mg/dL (0.2-1.0); TOTAL PROTEIN 6.8 g/dL (6.4-8.2)
[2016-08-01] MEDS: INSULIN ASPART 300 UNITS/3 ML INSULN.PEN SQ SCH ×4 (07:30→21:00)
[2016-08-01] MEDS: LIDOCAINE (700MG/PATCH) PATCH. TP SCH (08:27)
[2016-08-01] MEDS: ARIPiprazole 5 MG TABLET PO SCH (08:27)
[2016-08-01] MEDS: TAMSULOSIN 0.4 MG CAP.ER.24H. PO SCH (08:28)
[2016-08-01] MEDS: buPROPion XL 300 MG TAB.ER.24H. PO SCH (08:28)
[2016-08-01] MEDS: amLODIPine BESYLATE 10 MG TABLET PO SCH (08:28)
[2016-08-01] MEDS: CLOPIDOGREL BISULFATE 75 MG TABLET PO SCH (08:28)
[2016-08-01] MEDS: ASPIRIN ENTERIC COATED 81 MG TABLET.DR. PO SCH (08:28)
[2016-08-01] MEDS: MULTIVITAMIN with MINERAL TABLET. PO SCH (08:28)
[2016-08-01] MEDS: IV NORMAL SALINE 1,000ML 1,000 ML IV SCH ×2 (10:26→18:16)
[2016-08-01] MEDS: DRONABINOL 2.5 MG CAPSULE PO SCH ×2 (11:45→16:52)
[2016-08-01] MEDS: ASCORBIC ACID 500 MG TABLET PO SCH ×2 (11:45→16:52)
[2016-08-01 12:25] VITALS: BP 120/65
[2016-08-01 16:23] VITALS: BP 143/59
[2016-08-01 19:00] VITALS: BP 130/69
[2016-08-01 19:15] LABS: VANC TR 20.4 mcg/mL (10.0-20.0)
[2016-08-01] MEDS: VANCOMYCIN PER PHARMACY MC PRN (19:58)
[2016-08-01] MEDS: VANCOMYCIN 1.25 GM in IV NORMAL SALINE 250ML 250 ML IV SCH (20:38)
[2016-08-01] MEDS: ATORVASTATIN CALCIUM 10 MG TABLET. PO SCH (21:05)
--- NOTE | 2016-08-01 21:29 | PDOC ---
Exam Dong Demential Exam: Dong Note: Please also refer to the separate dictated note~for this date of service dictated separately.~Patient seen individually. Discussed the patient with Nursing staff reviewed the chart.~Reviewed interim history and current functioning. Reviewed vital signs,~Labs/ Radiology~and current medications noted below. Continue current treatment with the changes noted in the dictated addendum note Assessment: Vital Signs: Vital Signs Date Time Temp Pulse Resp B/P (MAP) Pulse Ox O2 Delivery O2 Flow Rate FiO2 08/01/16 16:23 98.0 94 20 143/59 (87) 99 Room Air I&O Intake and Output 08/01/16 07:00 Intake Total 2481 ml Output Total 3025 ml Balance -544 ml Intake Oral 1120 ml IV Total 1361 ml Output Urine Total 3025 ml # Voids 3 # Bowel Movements 3 Labs: Laboratory Tests Test 08/01/16 05:45 08/01/16 07:13 08/01/16 11:40 08/01/16 16:04 White Blood Count 7.8 x10^3/uL (4.0-11.0) Red Blood Count 2.50 x10^6/uL (4.30-5.70) L Hemoglobin 7.8 g/dL (13.0-17.5) L Hematocrit 23.9 % (39.0-53.0) L Mean Corpuscular Volume 95 fL (79-100) Mean Corpuscular Hemoglobin 31 pg (25-35) Mean Corpuscular Hemoglobin Concent 33 g/dL (31-37) Red Cell Distribution Width 13.6 % (11.5-14.5) Platelet Count 272 x10^3/uL (140-400) Sodium Level 138 mmol/L (136-145) Potassium Level 4.4 mmol/L (3.5-5.1) Chloride Level 107 mmol/L (98-107) Carbon Dioxide Level 21 mmol/L (21-32) Anion Gap 10 (6-14) Blood Urea Nitrogen 17 mg/dL (8-26) Creatinine 1.6 mg/dL (0.7-1.3) H Estimated GFR (Cockcroft-Gault) 42.1 BUN/Creatinine Ratio 11 (6-20) Glucose Level 97 mg/dL (70-99) Calcium Level 8.1 mg/dL (8.5-10.1) L Total Bilirubin 0.3 mg/dL (0.2-1.0) Aspartate Amino Transferase (AST) 19 U/L (15-37) Alanine Aminotransferase (ALT) 23 U/L (16-63) Alkaline Phosphatase 85 U/L (46-116) Total Protein 6.8 g/dL (6.4-8.2) Albumin 2.5 g/dL (3.4-5.0) L Albumin/Globulin Ratio 0.6 (1.0-1.7) L Glucose (Fingerstick) 94 mg/dL (70-99) 101 mg/dL (70-99) H 102 mg/dL (70-99) H Test 08/01/16 18:50 08/01/16 20:58 Vancomycin Level Trough 20.4 mcg/mL (10.0-20.0) H Vancomycin Last Dose Date 07/31/16 Vancomycin Last Dose Time 1800 Glucose (Fingerstick) 107 mg/dL (70-99) H Current Medications: Meds: Current Medications Acetaminophen (Tylenol) 650 mg PRN Q6HRS PRN PO PAIN Last administered on 19:54; Start 07/29/16 at 16:15 Albuterol Sulfate (Ventolin) 2.5 mg PRN Q4HRS PRN NEB SHORTNESS OF BREATH; Start 07/29/16 at 16:15 Amlodipine Besylate (Norvasc) 10 mg DAILY PO Last administered on 08/01/16 08: 28; Start 07/30/16 at 09:00 Aspirin (Aspirin Enteric Coated) 81 mg DAILY PO Last administered on 08/01/16 08:28; Start 07/30/16 at 09:00 Atorvastatin Calcium (Lipitor) 10 mg QHS PO Last administered on 08/01/16 21:05 ; Start 07/29/16 at 21:00 Bupropion HCl (Wellbutrin Xl) 300 mg DAILYWBKFT PO Last administered on 08:28; Start 07/30/16 at 08:00 Calcium Carbonate/ Glycine (Oscal) 500 mg PRN Q3HRS PRN PO HEARTBURN / GAS; Start 07/29/16 at 16:15 Chlordiazepoxide (Librium) 25 mg PRN Q6HRS PRN PO ANXIETY / AGITATION; Start at 16:15 Clopidogrel Bisulfate (Plavix) 75 mg DAILYWBKFT PO Last administered on 08:28; Start 07/30/16 at 08:00 Prochlorperazine Maleate (Compazine) 25 mg PRN Q12HR PRN RC NAUSEA/VOMITING; Start 07/29/16 at 16:15 Tamsulosin HCl (Flomax) 0.4 mg DAILY PO Last administered on 08/01/16 08:28; Start 07/30/16 at 09:00 Al Hydroxide/Mg Hydroxide (Mylanta Plus Xs) 30 ml PRN Q3HRS PRN PO HEARTBURN / GAS; Start 07/29/16 at 16:30 Multivitamins/ Calcium (Thera-M Plus) 1 tab DAILY PO Last administered on 08:28; Start 07/30/16 at 09:00 Insulin Aspart (NovoLOG) 0-5 UNITS QIDACHS SQ ; Start 07/29/16 at 16:30 Dextrose 12.5 gm PRN Q15MIN PRN IV SEE COMMENTS; Start 07/29/16 at 16:30 Aripiprazole (Abilify) 2.5 mg DAILY PO Last administered on 08/01/16 08:27; Start 07/30/16 at 09:00 Dronabinol (Marinol) 2.5 mg BIDACLD PO Last administered on 08/01/16 16:52; Start 07/30/16 at 11:30 Lidocaine (Lidoderm) 1 patch DAILY TP Last administered on 07/31/16 09:01; Start 07/30/16 at 09:00; Stop 07/31/16 at 13:30; Status DC Ascorbic Acid (Vitamin C) 250 mg BIDACLD PO Last administered on 08/01/16 16:52 ; Start 07/30/16 at 09:00 Sodium Chloride 1,000 ml @ 100 mls/hr Q10H IV Last administered on 08/01/16 18 :16; Start 07/29/16 at 17:45 Vancomycin HCl (Vanco Per Pharmacy) 1 each PRN DAILY PRN MC SEE COMMENTS Last administered on 08/01/16 19:58; Start 07/30/16 at 17:15 Meropenem 500 mg/ Sodium Chloride 50 ml @ 100 mls/hr Q8H IV Last administered on 08/01/16 20:07; Start 07/30/16 at 20:00 Vancomycin HCl 2 gm/Sodium Chloride 500 ml @ 250 mls/hr 1X ONCE IV ; Start 07/30/16 at 18:00; Stop 07/30/16 at 18:00; Status DC Vancomycin HCl 1.5 gm/Sodium Chloride 500 ml @ 250 mls/hr Q24H IV ; Start at 20:00; Stop 07/31/16 at 20:00; Status DC Vancomycin HCl 2 gm/Sodium Chloride 500 ml @ 250 mls/hr 1X ONCE IV Last administered on 07/30/16 18:14; Start 07/30/16 at 18:00; Stop 07/30/16 at 20:00; Status DC Vancomycin HCl 1.5 gm/Sodium Chloride 500 ml @ 250 mls/hr Q24H IV Last administered on 07/31/16 18:36; Start 07/31/16 at 18:00; Stop 08/01/16 at 19:36; Status DC Vancomycin HCl 1 each 1X ONCE MC Last administered on 08/01/16 17:30; Start at 17:30; Stop 08/01/16 at 17:31; Status DC Lidocaine (Lidoderm) 2 patch DAILY TP Last administered on 08/01/16 08:27; Start 08/01/16 at 09:00 Vancomycin HCl 1.25 gm/Sodium Chloride 250 ml @ 166.667 mls/hr Q24H IV Last administered on 08/01/16 20:38; Start 08/01/16 at 19:30 Vancomycin HCl 1 each 1X ONCE MC Last administered on 08/01/16 20:30; Start at 20:30; Stop 08/01/16 at 20:31; Status DC Active Scripts Active Reported Lidocaine 1 Each Adh..patch 1 Each TP DAILY Marinol (Dronabinol) 2.5 Mg Capsule 2.5 Mg PO BIDACLD Ascorbic Acid 250 Mg Tablet 250 Mg PO BIDACLD Abilify (Aripiprazole) 5 Mg Tablet 0.5 Tab PO DAILY Chlordiazepoxide Hcl 25 Mg Capsule 25 Mg PO PRN Q6HRS PRN Compazine (Prochlorperazine Maleate) 25 Mg Supp.rect 25 Mg RC PRN Q12HR PRN Maalox Advanced Suspension (Mag Hydrox/Aluminum Hyd/Simeth) 355 Ml Oral.susp 30 Ml PO PRN Q3HRS PRN Clopidogrel (Clopidogrel Bisulfate) 75 Mg Tablet 1 Tab PO DAILYWBKFT Calcium Carbonate 500 Mg Tablet 500 Mg PO PRN Q3HRS PRN Aspirin Ec (Aspirin) 81 Mg Tablet.dr 1 Tab PO DAILY LAST DOSE GIVEN: DATE: TIME: NEXT DOSE DUE: DATE: TIME: Tamsulosin Hcl 0.4 Mg Cap.er.24h 1 Cap PO DAILY Albuterol Sulfate Conc Neb Soln (Albuterol Sulfate) 2.5 Mg/0.5 Ml Vial.neb 1 Vial NEB Q4HRS PRN Tylenol (Acetaminophen) 325 Mg Tablet 2 Tab PO PRN Q6HRS PRN LAST DOSE GIVEN: DATE: TIME: NEXT DOSE DUE: DATE: TIME: Bupropion Xl (Bupropion Hcl) 150 Mg Tab.er.24h 1 Tab PO DAILYWBKFT Amlodipine Besylate 10 Mg Tablet 1 Tab PO DAILY Atorvastatin Calcium 10 Mg Tablet 10 Mg PO QHS Multivitamins (Multivitamin) 1 Each Tablet 1 Tab PO DAILY Diagnosis: Problems: (1) Anxiety disorder (2) Dementia, vascular, with depression (3) Major depressive disorder, recurrent episode BETH OSPINA MD Aug 01, 2016 21:29
--- NOTE | 2016-08-01 23:54 | PN ---
DATE: 08/01/2016 SUBJECTIVE: The patient is resting slightly propped up in his recliner in no apparent distress, awake, alert. On questioning him, he denied any complaint except pain in his right shoulder. Nursing staff did not voice any concern and stated that he had an uneventful night. PHYSICAL EXAMINATION: GENERAL: When I examined him, he looked pale, no jaundice, cyanosis, or thyromegaly. No jugular venous distention. No limb edema. VITAL SIGNS: His heart rate was 92, blood pressure was 109/55, temperature was 98.1, respiratory rate was 17 and oxygen saturation was 96% on room air. HEAD, EYES, EARS, NOSE AND THROAT: Showed normocephalic, atraumatic. NECK: Supple. HEART: Showed normal first and second heart sounds with no gallop, rub or murmur. CHEST: Clear to auscultation. No crepitation or rhonchi. ABDOMEN: Distended, soft, nontender. No guarding or rigidity. No organomegaly. Hernial orifices intact. Bowel sounds normal. NEUROLOGIC: He was awake, alert, responding at times appropriately. All cranial nerves intact. He moves his left upper extremity to much good extent than right upper extremity due to pain in his right shoulder. He has multiple wounds in his right foot. His intake was 2481, output was 3025. LABORATORY DATA: As of this morning showed a white cell count of 7800, hemoglobin 7.8, hematocrit 23.9, MCV 95 and platelet count 271,000. His chemistry showed a serum sodium 138, potassium 4.4, chloride 107, bicarbonate 21, anion gap of 10, BUN 17, creatinine 1.6, estimated GFR was 42 mL per minute. His glucose was 97. Calcium was 8.1. Total bilirubin, AST, ALT, alkaline phosphatase were normal. Total protein 6.8, albumin 2.5. ASSESSMENT: 1. Acute kidney injury, resolving after we placed the Aguilar catheter. His creatinine is down to 1.6 and BUN is 17. 2. Hyperkalemia, resolved. His most recent potassium is down to 4.4. 3. Right foot osteomyelitis, which is now on IV vancomycin and meropenem. He has had a PICC line placed successfully in his right arm. 4. Hyperlipidemia, for which he is on atorvastatin. 5. Depression, for which he is followed by Dr. Gus and is now on aripiprazole as well as Wellbutrin. 6. Type 2 diabetes, insulin requiring, much improved. 7. Chronic obstructive pulmonary disease, clinically quiescent. 8. Benign prostatic hypertrophy. Continue Flomax; however, he continues to retain urine. We have placed an indwelling Aguilar catheter. 9. Hypertension, well controlled on amlodipine 10. Peripheral vascular disease status post stenting in the right common femoral artery and he is now on Plavix 75 mg once a day. PLAN: Continue IV fluid, continue IV antibiotic, and continue with pain management. I am hoping that he can be transferred tomorrow to [facility] to continue IV antibiotic, wound care and to start the process of physical and occupational therapy. SALINA TERRAZAS MD DR: DIXIE/summer JOB#: [id number] / [id number]
--- NOTE | 2016-08-02 02:45 | PN ---
DATE: 07/30/2016 This late entry 07/30/2016 covers elements not covered in my initial note. SUBJECTIVE: Overall, the patient has been more awake and alert during the day per nursing staff. He is still depressed at times. Certainly has short-term memory deficits, still feels hopeless, just wants to get home and everything will be well. REVIEW OF SYSTEMS: Ambulation impaired complains of tiredness. No CV, , eye, ENT system symptoms on review. Reliability poor. MENTAL STATUS EXAM: Oriented to himself and situation. Speech has some latency, coherent. Abstraction fair, computation impaired, language function intact. Mood and affect withdrawn, depressed, but better than before. No suicidal or homicidal ideation. LABORATORY DATA: Reviewed. IMPRESSION: Unchanged from initial note. Major neurocognitive disorder, early vascular with depression. Major depressive disorder, recurrent, in partial remission. PLAN: Continue Wellbutrin and Abilify at current dosage. Adjust further as clinically indicated. MAN Britton OSPINA MD DR: MONICO/summer JOB#: [id number] / [id number]
--- NOTE | 2016-08-02 03:46 | PN ---
DATE: 07/31/2016 This late entry 07/31/2016 covers elements not covered in my initial note. SUBJECTIVE: Per nursing report, the patient has been more awake and interactive during the day. He was watching television as I met with him. Still feels depressed, but better than before and subjectively as I questioned him, he said he felt "better." REVIEW OF SYSTEMS: Ambulation impaired, still complains of tiredness. MENTAL STATUS EXAM: Oriented to himself and situation. Speech has some latency, coherent. Mood and affect is improved. IMPRESSION: Unchanged from initial note. PLAN: Continue Wellbutrin and Abilify at current dosage. If needed, we may need to increase the Wellbutrin further. MAN Britton OSPINA MD DR: MONICO/summer JOB#: [id number] / [id number]
[2016-08-02] MEDS: MEROPENEM 500 MG in IV NORMAL SALINE 50ML 50 ML IV SCH ×3 (03:54→20:10)
[2016-08-02 05:00] VITALS: BP 133/77
[2016-08-02 05:54] LABS: CALCIUM 7.4 mg/dL (8.5-10.1); CREATININE 1.4 mg/dL (0.7-1.3); GFR 49.1; POTASSIUM 4.1 mmol/L (3.5-5.1)
[2016-08-02] MEDS: IV NORMAL SALINE 1,000ML 1,000 ML IV SCH ×2 (06:26→20:16)
[2016-08-02] MEDS: LIDOCAINE (700MG/PATCH) PATCH. TP SCH (07:50)
[2016-08-02] MEDS: ASPIRIN ENTERIC COATED 81 MG TABLET.DR. PO SCH (07:50)
[2016-08-02] MEDS: ARIPiprazole 5 MG TABLET PO SCH (07:50)
[2016-08-02] MEDS: MULTIVITAMIN with MINERAL TABLET. PO SCH (07:50)
[2016-08-02] MEDS: amLODIPine BESYLATE 10 MG TABLET PO SCH (07:50)
[2016-08-02] MEDS: buPROPion XL 300 MG TAB.ER.24H. PO SCH (07:51)
[2016-08-02] MEDS: TAMSULOSIN 0.4 MG CAP.ER.24H. PO SCH (07:51)
[2016-08-02] MEDS: CLOPIDOGREL BISULFATE 75 MG TABLET PO SCH (07:51)
[2016-08-02] MEDS: ASCORBIC ACID 500 MG TABLET PO SCH ×2 (07:51→17:01)
[2016-08-02] MEDS: INSULIN ASPART 300 UNITS/3 ML INSULN.PEN SQ SCH ×4 (08:00→20:20)
[2016-08-02 10:13] VITALS: BP 123/61
[2016-08-02] MEDS: VANCOMYCIN PER PHARMACY MC PRN (11:06)
--- NOTE | 2016-08-02 11:08 | PDOC ---
Exam Dong Demential Exam: Dong Note: Please also refer to the separate dictated note~for this date of service dictated separately.~Patient seen individually. Discussed the patient with Nursing staff reviewed the chart.~Reviewed interim history and current functioning. Reviewed vital signs,~Labs/ Radiology~and current medications noted below. Continue current treatment with the changes noted in the dictated addendum note Assessment: Vital Signs: Vital Signs Date Time Temp Pulse Resp B/P (MAP) Pulse Ox O2 Delivery O2 Flow Rate FiO2 08/02/16 11:01 Room Air 0.0 08/02/16 10:13 98.3 86 20 123/61 (81) 96 I&O Intake and Output 08/02/16 07:00 Intake Total 2750 ml Output Total 4000 ml Balance -1250 ml Intake Oral 1700 ml IV Total 1050 ml Output Urine Total 4000 ml # Voids 1 # Bowel Movements 3 Labs: Laboratory Tests Test 08/01/16 11:40 08/01/16 16:04 08/01/16 18:50 08/01/16 20:58 Glucose (Fingerstick) 101 mg/dL (70-99) H 102 mg/dL (70-99) H 107 mg/dL (70-99) H Vancomycin Level Trough 20.4 mcg/mL (10.0-20.0) H Vancomycin Last Dose Date 07/31/16 Vancomycin Last Dose Time 1800 Test 08/02/16 05:20 08/02/16 07:46 Sodium Level 138 mmol/L (136-145) Potassium Level 4.1 mmol/L (3.5-5.1) Chloride Level 109 mmol/L (98-107) H Carbon Dioxide Level 19 mmol/L (21-32) L Anion Gap 10 (6-14) Blood Urea Nitrogen 13 mg/dL (8-26) Creatinine 1.4 mg/dL (0.7-1.3) H Estimated GFR (Cockcroft-Gault) 49.1 Glucose Level 80 mg/dL (70-99) Calcium Level 7.4 mg/dL (8.5-10.1) L Glucose (Fingerstick) 90 mg/dL (70-99) Current Medications: Meds: Current Medications Acetaminophen (Tylenol) 650 mg PRN Q6HRS PRN PO PAIN Last administered on t 19:54; Start 07/29/16 at 16:15 Albuterol Sulfate (Ventolin) 2.5 mg PRN Q4HRS PRN NEB SHORTNESS OF BREATH; Start 07/29/16 at 16:15 Amlodipine Besylate (Norvasc) 10 mg DAILY PO Last administered on 08/02/16 07: 50; Start 07/30/16 at 09:00 Aspirin (Aspirin Enteric Coated) 81 mg DAILY PO Last administered on 08/02/16 07:50; Start 07/30/16 at 09:00 Atorvastatin Calcium (Lipitor) 10 mg QHS PO Last administered on 08/01/16 21:05 ; Start 07/29/16 at 21:00 Bupropion HCl (Wellbutrin Xl) 300 mg DAILYWBKFT PO Last administered on 07:51; Start 07/30/16 at 08:00 Calcium Carbonate/ Glycine (Oscal) 500 mg PRN Q3HRS PRN PO HEARTBURN / GAS; Start 07/29/16 at 16:15 Chlordiazepoxide (Librium) 25 mg PRN Q6HRS PRN PO ANXIETY / AGITATION; Start at 16:15 Clopidogrel Bisulfate (Plavix) 75 mg DAILYWBKFT PO Last administered on 07:51; Start 07/30/16 at 08:00 Prochlorperazine Maleate (Compazine) 25 mg PRN Q12HR PRN RC NAUSEA/VOMITING; Start 07/29/16 at 16:15 Tamsulosin HCl (Flomax) 0.4 mg DAILY PO Last administered on 08/02/16 07:51; Start 07/30/16 at 09:00 Al Hydroxide/Mg Hydroxide (Mylanta Plus Xs) 30 ml PRN Q3HRS PRN PO HEARTBURN / GAS; Start 07/29/16 at 16:30 Multivitamins/ Calcium (Thera-M Plus) 1 tab DAILY PO Last administered on 07:50; Start 07/30/16 at 09:00 Insulin Aspart (NovoLOG) 0-5 UNITS QIDACHS SQ ; Start 07/29/16 at 16:30 Dextrose 12.5 gm PRN Q15MIN PRN IV SEE COMMENTS; Start 07/29/16 at 16:30 Aripiprazole (Abilify) 2.5 mg DAILY PO Last administered on 08/02/16 07:50; Start 07/30/16 at 09:00 Dronabinol (Marinol) 2.5 mg BIDACLD PO Last administered on 08/01/16 16:52; Start 07/30/16 at 11:30 Lidocaine (Lidoderm) 1 patch DAILY TP Last administered on 07/31/16 09:01; Start 07/30/16 at 09:00; Stop 07/31/16 at 13:30; Status DC Ascorbic Acid (Vitamin C) 250 mg BIDACLD PO Last administered on 08/02/16 07: 51; Start 07/30/16 at 09:00 Sodium Chloride 1,000 ml @ 100 mls/hr Q10H IV Last administered on 08/02/16 06:26; Start 07/29/16 at 17:45 Vancomycin HCl (Vanco Per Pharmacy) 1 each PRN DAILY PRN MC SEE COMMENTS Last administered on 08/02/16 11:06; Start 07/30/16 at 17:15 Meropenem 500 mg/ Sodium Chloride 50 ml @ 100 mls/hr Q8H IV Last administered on 08/02/16 03:54; Start 07/30/16 at 20:00 Vancomycin HCl 2 gm/Sodium Chloride 500 ml @ 250 mls/hr 1X ONCE IV ; Start 07/30/16 at 18:00; Stop 07/30/16 at 18:00; Status DC Vancomycin HCl 1.5 gm/Sodium Chloride 500 ml @ 250 mls/hr Q24H IV ; Start at 20:00; Stop 07/31/16 at 20:00; Status DC Vancomycin HCl 2 gm/Sodium Chloride 500 ml @ 250 mls/hr 1X ONCE IV Last administered on 07/30/16 18:14; Start 07/30/16 at 18:00; Stop 07/30/16 at 20:00; Status DC Vancomycin HCl 1.5 gm/Sodium Chloride 500 ml @ 250 mls/hr Q24H IV Last administered on 07/31/16 18:36; Start 07/31/16 at 18:00; Stop 08/01/16 at 19:36; Status DC Vancomycin HCl 1 each 1X ONCE MC Last administered on 08/01/16 17:30; Start at 17:30; Stop 08/01/16 at 17:31; Status DC Lidocaine (Lidoderm) 2 patch DAILY TP Last administered on 08/02/16 07:50; Start 08/01/16 at 09:00 Vancomycin HCl 1.25 gm/Sodium Chloride 250 ml @ 166.667 mls/hr Q24H IV Last administered on 08/01/16 20:38; Start 08/01/16 at 19:30 Vancomycin HCl 1 each 1X ONCE MC Last administered on 08/01/16 20:30; Start at 20:30; Stop 08/01/16 at 20:31; Status DC Vancomycin HCl 1 each 1X ONCE MC ; Start 08/01/16 at 23:15; Stop 08/01/16 at 23: 17; Status DC Active Scripts Active Reported Lidocaine 1 Each Adh..patch 1 Each TP DAILY Marinol (Dronabinol) 2.5 Mg Capsule 2.5 Mg PO BIDACLD Ascorbic Acid 250 Mg Tablet 250 Mg PO BIDACLD Abilify (Aripiprazole) 5 Mg Tablet 0.5 Tab PO DAILY Chlordiazepoxide Hcl 25 Mg Capsule 25 Mg PO PRN Q6HRS PRN Compazine (Prochlorperazine Maleate) 25 Mg Supp.rect 25 Mg RC PRN Q12HR PRN Maalox Advanced Suspension (Mag Hydrox/Aluminum Hyd/Simeth) 355 Ml Oral.susp 30 Ml PO PRN Q3HRS PRN Clopidogrel (Clopidogrel Bisulfate) 75 Mg Tablet 1 Tab PO DAILYWBKFT Calcium Carbonate 500 Mg Tablet 500 Mg PO PRN Q3HRS PRN Aspirin Ec (Aspirin) 81 Mg Tablet.dr 1 Tab PO DAILY LAST DOSE GIVEN: DATE: TIME: NEXT DOSE DUE: DATE: TIME: Tamsulosin Hcl 0.4 Mg Cap.er.24h 1 Cap PO DAILY Albuterol Sulfate Conc Neb Soln (Albuterol Sulfate) 2.5 Mg/0.5 Ml Vial.neb 1 Vial NEB Q4HRS PRN Tylenol (Acetaminophen) 325 Mg Tablet 2 Tab PO PRN Q6HRS PRN LAST DOSE GIVEN: DATE: TIME: NEXT DOSE DUE: DATE: TIME: Bupropion Xl (Bupropion Hcl) 150 Mg Tab.er.24h 1 Tab PO DAILYWBKFT Amlodipine Besylate 10 Mg Tablet 1 Tab PO DAILY Atorvastatin Calcium 10 Mg Tablet 10 Mg PO QHS Multivitamins (Multivitamin) 1 Each Tablet 1 Tab PO DAILY Diagnosis: Problems: (1) Anxiety disorder (2) Dementia, vascular, with depression (3) Major depressive disorder, recurrent episode BETH OSPINA MD Aug 02, 2016 11:08
[2016-08-02] MEDS: DRONABINOL 2.5 MG CAPSULE PO SCH ×2 (11:52→17:01)
[2016-08-02 15:53] VITALS: BP 134/65
[2016-08-02] MEDS: ACETAMINOPHEN 325 MG TABLET PO PRN (17:01)
[2016-08-02] MEDS: VANCOMYCIN 1.25 GM in IV NORMAL SALINE 250ML 250 ML IV SCH (18:13)
[2016-08-02 19:15] VITALS: BP 132/69
[2016-08-02] MEDS: ATORVASTATIN CALCIUM 10 MG TABLET. PO SCH (20:15)
[2016-08-02 23:56] VITALS: BP 134/63
--- NOTE | 2016-08-03 00:40 | PN ---
DATE: 08/02/2016 SUBJECTIVE: The patient is siting in his chair, eating his lunch, comfortably, in no apparent distress. He continues to complain of pain in his right shoulder, although, he seems to be able to use his right hand more readily than before. He has now 2 Lidoderm patches in his right shoulder. He denied any other complaint. PHYSICAL EXAMINATION: GENERAL: When I examined him, he looked pale, but no jaundice, cyanosis, or thyromegaly. No jugular venous distention. No limb edema. VITAL SIGNS: His heart rate was 86, blood pressure was 123/61, temperature was 98.3, respiratory rate 20, and oxygen saturation was 96% on 3 liters of oxygen by nasal cannula. EXTREMITIES: He has multiple wounds in his right foot covered with dressing. The rest of clinical examination is stable, has not really changed. His intake over the last 24 hours was 2750, output was 4000. LABORATORY DATA: As of this morning showed that his serum sodium 138, potassium 4.1, chloride 109, bicarbonate 19, anion gap of 10, BUN 13, creatinine 1.4, estimated GFR was 49 mL per minute. His glucose was 80 and calcium was 7.4. ASSESSMENT: 1. Acute kidney injury, resolving after we placed a Aguilar catheter and started him on IV fluids. His creatinine is down to 1.4 and BUN of 13. 2. Hyperkalemia, resolved. His serum potassium is down to 4.1 mEq per liter. 3. Right foot osteomyelitis, for which he is on IV vancomycin and meropenem. He has had a PICC line placed successfully in his right arm. 4. Hyperlipidemia for which he is on atorvastatin. 5. Depression, for which he is followed by Dr. Weber. He is now on aripiprazole as well as Wellbutrin. 6. Type 2 diabetes, insulin requiring, much improved. 7. Chronic obstructive pulmonary disease, clinically quiescent. 8. Benign prostatic hypertrophy for which he continues to be on Flomax; however, he continues to retain urine and we have place an indwelling Aguilar catheter 9. Hypertension, well controlled on amlodipine 10. Peripheral vascular disease status post stenting of his right common femoral artery. He is now on Plavix 75 mg once a day. 11. Anemia that is normochromic normocytic, and most recent hemoglobin is 7.8, hematocrit 23.9, likely due to chronic kidney disease. PLAN: We will cut down the IV fluid to 50 mL per hour. Continue with IV antibiotic. Continue with pain management. Continue with local wound care. Continue with physical and occupational therapy. We will await the case management on Thursday to see whether he qualifies to go to [facility]. SALINA TERRAZAS MD DR: DIXIE/summer JOB#: [id number] / [id number]
[2016-08-03] MEDS: MEROPENEM 500 MG in IV NORMAL SALINE 50ML 50 ML IV SCH ×3 (03:51→20:31)
[2016-08-03 07:00] LABS: HEMATOCRIT 23.4 % (39.0-53.0); HEMOGLOBIN 7.6 g/dL (13.0-17.5); RED BLOOD COUNT 2.48 x10^6/uL (4.30-5.70); RED CELL DISTRIBUTION WIDTH 13.7 % (11.5-14.5); WHITE BLOOD COUNT 6.8 x10^3/uL (4.0-11.0)
[2016-08-03 07:08] LABS: CALCIUM 7.9 mg/dL (8.5-10.1); CREATININE 1.2 mg/dL (0.7-1.3); GFR 58.7; POTASSIUM 4.5 mmol/L (3.5-5.1)
[2016-08-03] MEDS: INSULIN ASPART 300 UNITS/3 ML INSULN.PEN SQ SCH ×4 (07:30→21:00)
[2016-08-03 07:38] VITALS: BP 153/68
[2016-08-03] MEDS: VANCOMYCIN PER PHARMACY MC PRN (08:35)
[2016-08-03] MEDS: LIDOCAINE (700MG/PATCH) PATCH. TP SCH (08:51)
[2016-08-03] MEDS: buPROPion XL 300 MG TAB.ER.24H. PO SCH (08:54)
[2016-08-03] MEDS: ASPIRIN ENTERIC COATED 81 MG TABLET.DR. PO SCH (08:55)
[2016-08-03] MEDS: TAMSULOSIN 0.4 MG CAP.ER.24H. PO SCH (08:56)
[2016-08-03] MEDS: MULTIVITAMIN with MINERAL TABLET. PO SCH (08:56)
[2016-08-03] MEDS: amLODIPine BESYLATE 10 MG TABLET PO SCH (08:56)
[2016-08-03] MEDS: ARIPiprazole 5 MG TABLET PO SCH (08:56)
[2016-08-03] MEDS: CLOPIDOGREL BISULFATE 75 MG TABLET PO SCH (08:57)
--- NOTE | 2016-08-03 10:10 | PN ---
DATE: 08/01/2016 SUBJECTIVE: This is a late entry for date of service 08/01/2016. The patient was seen individually evening of 08/01/2016. Discussed with nursing staff and reviewed the chart. Overall, the patient has been much more awake and alert during the day. Still has short term memory deficits per nursing report, but more interactive. This note covers elements not covered in my initial note. MENTAL STATUS EXAM: Oriented to himself. Speech moderate latency and often responses monosyllabic. Mood and affect is improved. No suicidal or homicidal ideation. LABORATORY DATA: Reviewed. IMPRESSION: Major neurocognitive disorder, Alzheimer, vascular with depression; and anxiety disorder, unspecified. Rest unchanged. PLAN: Continue Wellbutrin and Abilify at current dosage. Adjust further as clinically indicated. MAN Britton OSPINA MD DR: MONICO/summer JOB#: [id number] / [id number]
--- NOTE | 2016-08-03 10:51 | PN ---
DATE: 08/02/2016 This note covers elements not covered in my initial note. Overall, per nursing report, the patient has been more awake and alert during the day. He is still forgetful, but mood appears better. He was tired this evening to ready for bed. Ambulation impaired. REVIEW OF SYSTEMS: No CV, , pulmonary, eye system symptoms on review. Reliability poor. MENTAL STATUS EXAM: Oriented to himself. Insight, judgment, recent memory is impaired. Mood and affect is improved. LABORATORY DATA: Reviewed. IMPRESSION: Unchanged from initial note. PLAN: Continue current psychotropics including Wellbutrin and Abilify. Adjust further as clinically indicated. MAN Britton OSPINA MD DR: MONICO/summer JOB#: [id number] / [id number]
[2016-08-03 11:03] VITALS: BP 135/77
[2016-08-03] MEDS: DRONABINOL 2.5 MG CAPSULE PO SCH ×2 (12:01→16:50)
[2016-08-03] MEDS: ASCORBIC ACID 500 MG TABLET PO SCH ×2 (12:01→16:51)
[2016-08-03 16:13] VITALS: BP 127/60
[2016-08-03] MEDS: VANCOMYCIN 1.25 GM in IV NORMAL SALINE 250ML 250 ML IV SCH (19:48)
[2016-08-03] MEDS: ATORVASTATIN CALCIUM 10 MG TABLET. PO SCH (19:48)
[2016-08-03 19:58] VITALS: BP 133/75
[2016-08-03 20:42] LABS: VANC TR 23.2 mcg/mL (10.0-20.0)
--- NOTE | 2016-08-03 21:06 | PDOC ---
Exam Dong Demential Exam: Dong Note: Please also refer to the separate dictated note~for this date of service dictated separately.~Patient seen individually. Discussed the patient with Nursing staff reviewed the chart.~Reviewed interim history and current functioning. Reviewed vital signs,~Labs/ Radiology~and current medications noted below. Continue current treatment with the changes noted in the dictated addendum note Assessment: Vital Signs: Vital Signs Date Time Temp Pulse Resp B/P (MAP) Pulse Ox O2 Delivery O2 Flow Rate FiO2 08/03/16 19:58 98.6 85 18 133/75 (94) 92 Room Air 08/02/16 11:01 0.0 I&O Intake and Output 08/03/16 07:00 Intake Total 4113.02 ml Output Total 4080 ml Balance 33.02 ml Intake Oral 1100 ml IV Total 3013.02 ml Output Urine Total 4080 ml # Bowel Movements 2 Labs: Laboratory Tests Test 08/03/16 06:54 08/03/16 07:33 08/03/16 11:46 08/03/16 16:38 White Blood Count 6.8 x10^3/uL (4.0-11.0) Red Blood Count 2.48 x10^6/uL (4.30-5.70) L Hemoglobin 7.6 g/dL (13.0-17.5) L Hematocrit 23.4 % (39.0-53.0) L Mean Corpuscular Volume 95 fL (79-100) Mean Corpuscular Hemoglobin 31 pg (25-35) Mean Corpuscular Hemoglobin Concent 33 g/dL (31-37) Red Cell Distribution Width 13.7 % (11.5-14.5) Platelet Count 265 x10^3/uL (140-400) Sodium Level 138 mmol/L (136-145) Potassium Level 4.5 mmol/L (3.5-5.1) Chloride Level 108 mmol/L (98-107) H Carbon Dioxide Level 20 mmol/L (21-32) L Anion Gap 10 (6-14) Blood Urea Nitrogen 11 mg/dL (8-26) Creatinine 1.2 mg/dL (0.7-1.3) Estimated GFR (Cockcroft-Gault) 58.7 Glucose Level 83 mg/dL (70-99) Calcium Level 7.9 mg/dL (8.5-10.1) L Glucose (Fingerstick) 78 mg/dL (70-99) 117 mg/dL (70-99) H 93 mg/dL (70-99) Test 08/03/16 20:20 Vancomycin Level Trough 23.2 mcg/mL (10.0-20.0) H Vancomycin Last Dose Date 08/02/16 Vancomycin Last Dose Time 2030 Current Medications: Meds: Current Medications Acetaminophen (Tylenol) 650 mg PRN Q6HRS PRN PO PAIN Last administered on 17:01; Start 07/29/16 at 16:15 Albuterol Sulfate (Ventolin) 2.5 mg PRN Q4HRS PRN NEB SHORTNESS OF BREATH; Start 07/29/16 at 16:15 Amlodipine Besylate (Norvasc) 10 mg DAILY PO Last administered on 08/03/16 08: 56; Start 07/30/16 at 09:00 Aspirin (Aspirin Enteric Coated) 81 mg DAILY PO Last administered on 08/03/16 08:55; Start 07/30/16 at 09:00 Atorvastatin Calcium (Lipitor) 10 mg QHS PO Last administered on 08/03/16 19: 48; Start 07/29/16 at 21:00 Bupropion HCl (Wellbutrin Xl) 300 mg DAILYWBKFT PO Last administered on 08:54; Start 07/30/16 at 08:00 Calcium Carbonate/ Glycine (Oscal) 500 mg PRN Q3HRS PRN PO HEARTBURN / GAS; Start 07/29/16 at 16:15 Chlordiazepoxide (Librium) 25 mg PRN Q6HRS PRN PO ANXIETY / AGITATION; Start at 16:15 Clopidogrel Bisulfate (Plavix) 75 mg DAILYWBKFT PO Last administered on 08:57; Start 07/30/16 at 08:00 Prochlorperazine Maleate (Compazine) 25 mg PRN Q12HR PRN RC NAUSEA/VOMITING; Start 07/29/16 at 16:15 Tamsulosin HCl (Flomax) 0.4 mg DAILY PO Last administered on 08/03/16 08:56; Start 07/30/16 at 09:00 Al Hydroxide/Mg Hydroxide (Mylanta Plus Xs) 30 ml PRN Q3HRS PRN PO HEARTBURN / GAS; Start 07/29/16 at 16:30 Multivitamins/ Calcium (Thera-M Plus) 1 tab DAILY PO Last administered on 08:56; Start 07/30/16 at 09:00 Insulin Aspart (NovoLOG) 0-5 UNITS QIDACHS SQ ; Start 07/29/16 at 16:30 Dextrose 12.5 gm PRN Q15MIN PRN IV SEE COMMENTS; Start 07/29/16 at 16:30 Aripiprazole (Abilify) 2.5 mg DAILY PO Last administered on 08/03/16 08:56; Start 07/30/16 at 09:00 Dronabinol (Marinol) 2.5 mg BIDACLD PO Last administered on 08/03/16 16:50; Start 07/30/16 at 11:30 Lidocaine (Lidoderm) 1 patch DAILY TP Last administered on 07/31/16 09:01; Start 07/30/16 at 09:00; Stop 07/31/16 at 13:30; Status DC Ascorbic Acid (Vitamin C) 250 mg BIDACLD PO Last administered on 08/03/16 16: 51; Start 07/30/16 at 09:00 Sodium Chloride 1,000 ml @ 50 mls/hr Q20H IV Last administered on 08/02/16 20 :16; Start 07/29/16 at 17:45; Stop 08/03/16 at 11:28; Status DC Vancomycin HCl (Vanco Per Pharmacy) 1 each PRN DAILY PRN MC SEE COMMENTS Last administered on 08/03/16 08:35; Start 07/30/16 at 17:15 Meropenem 500 mg/ Sodium Chloride 50 ml @ 100 mls/hr Q8H IV Last administered on 08/03/16 20:31; Start 07/30/16 at 20:00 Vancomycin HCl 2 gm/Sodium Chloride 500 ml @ 250 mls/hr 1X ONCE IV ; Start 07/30/16 at 18:00; Stop 07/30/16 at 18:00; Status DC Vancomycin HCl 1.5 gm/Sodium Chloride 500 ml @ 250 mls/hr Q24H IV ; Start at 20:00; Stop 07/31/16 at 20:00; Status DC Vancomycin HCl 2 gm/Sodium Chloride 500 ml @ 250 mls/hr 1X ONCE IV Last administered on 07/30/16 18:14; Start 07/30/16 at 18:00; Stop 07/30/16 at 20:00; Status DC Vancomycin HCl 1.5 gm/Sodium Chloride 500 ml @ 250 mls/hr Q24H IV Last administered on 07/31/16 18:36; Start 07/31/16 at 18:00; Stop 08/01/16 at 19:36; Status DC Vancomycin HCl 1 each 1X ONCE MC Last administered on 08/01/16 17:30; Start at 17:30; Stop 08/01/16 at 17:31; Status DC Lidocaine (Lidoderm) 2 patch DAILY TP Last administered on 08/03/16 08:51; Start 08/01/16 at 09:00 Vancomycin HCl 1.25 gm/Sodium Chloride 250 ml @ 166.667 mls/hr Q24H IV Last administered on 08/02/16 18:13; Start 08/01/16 at 19:30; Stop 08/03/16 at 20:59 ; Status DC Vancomycin HCl 1 each 1X ONCE MC Last administered on 08/01/16 20:30; Start at 20:30; Stop 08/01/16 at 20:31; Status DC Vancomycin HCl 1 each 1X ONCE MC ; Start 08/01/16 at 23:15; Stop 08/01/16 at 23: 17; Status DC Vancomycin HCl 1.25 gm/Sodium Chloride 250 ml @ 166.667 mls/hr Q48H IV ; Start 08/04/16 at 20:00 Active Scripts Active Reported Lidocaine 1 Each Adh..patch 1 Each TP DAILY Marinol (Dronabinol) 2.5 Mg Capsule 2.5 Mg PO BIDACLD Ascorbic Acid 250 Mg Tablet 250 Mg PO BIDACLD Abilify (Aripiprazole) 5 Mg Tablet 0.5 Tab PO DAILY Chlordiazepoxide Hcl 25 Mg Capsule 25 Mg PO PRN Q6HRS PRN Compazine (Prochlorperazine Maleate) 25 Mg Supp.rect 25 Mg RC PRN Q12HR PRN Maalox Advanced Suspension (Mag Hydrox/Aluminum Hyd/Simeth) 355 Ml Oral.susp 30 Ml PO PRN Q3HRS PRN Clopidogrel (Clopidogrel Bisulfate) 75 Mg Tablet 1 Tab PO DAILYWBKFT Calcium Carbonate 500 Mg Tablet 500 Mg PO PRN Q3HRS PRN Aspirin Ec (Aspirin) 81 Mg Tablet.dr 1 Tab PO DAILY LAST DOSE GIVEN: DATE: TIME: NEXT DOSE DUE: DATE: TIME: Tamsulosin Hcl 0.4 Mg Cap.er.24h 1 Cap PO DAILY Albuterol Sulfate Conc Neb Soln (Albuterol Sulfate) 2.5 Mg/0.5 Ml Vial.neb 1 Vial NEB Q4HRS PRN Tylenol (Acetaminophen) 325 Mg Tablet 2 Tab PO PRN Q6HRS PRN LAST DOSE GIVEN: DATE: TIME: NEXT DOSE DUE: DATE: TIME: Bupropion Xl (Bupropion Hcl) 150 Mg Tab.er.24h 1 Tab PO DAILYWBKFT Amlodipine Besylate 10 Mg Tablet 1 Tab PO DAILY Atorvastatin Calcium 10 Mg Tablet 10 Mg PO QHS Multivitamins (Multivitamin) 1 Each Tablet 1 Tab PO DAILY Diagnosis: Problems: (1) Anxiety disorder (2) Dementia, vascular, with depression (3) Major depressive disorder, recurrent episode BETH OSPINA MD Aug 03, 2016 21:06
[2016-08-04] MEDS: VANCOMYCIN PER PHARMACY MC PRN (01:42)
--- NOTE | 2016-08-04 01:47 | PN ---
DATE: 08/03/2016 SUBJECTIVE: The patient is resting, slightly propped up in bed, no apparent distress and offered no complaint. The nursing staff did not voice any concerns and stated that he had an uneventful night. PHYSICAL EXAMINATION: GENERAL: I examined him, he looked well and was clearly in no apparent respiratory distress, pale, but no jaundice, cyanosis, or thyromegaly. No jugular venous distention. No limb edema. VITAL SIGNS: His heart rate was 68, blood pressure /77, temperature was 98.6, respiratory rate 20, and oxygen saturation was 96% on room air. HEAD, EYES, EARS, NOSE AND THROAT: Showed normocephalic, atraumatic. NECK: Supple. HEART: Showed normal first and second heart sounds. No gallop, rub or murmur. CHEST: Clear to auscultation. No crepitation or rhonchi. ABDOMEN: Distended, soft, nontender. No guarding or rigidity. No organomegaly. Hernial orifices intact. Bowel sounds normal. NEUROLOGIC: He was demented, but without any obvious lateralizing sign. He is unable to move his right upper extremity because of severe shoulder pain due to rotator cuff tear, able to lift his extremity without difficulty. Mostly bed bound and chair bound. He has multiple wounds in his right foot. His intake over the last 24 hours was 4100, output was 4000. LABORATORY DATA: As of this morning showed a white cell count of 6800, hemoglobin 7.6, hematocrit 23.4, MCV 95 and platelet count 265,000. His chemistry showed a serum sodium 138, potassium 4.5, chloride 108, bicarbonate 20, anion gap of 10, BUN 11, creatinine 1.2, estimated GFR was 58 mL per minute. His glucose was 83, calcium was 7.9. ASSESSMENT: 1. Acute kidney injury, resolving after placement of a Aguilar catheter and started him on IV fluids. His creatinine is down to 1.4 and BUN is 10. 2. Hyperkalemia, resolved. His most recent potassium is 4.5. 3. Right foot osteomyelitis, which he is now on IV vancomycin and meropenem. He has had a PICC line placed successfully in his right arm. 4. Hyperlipidemia, for which he is on atorvastatin. 5. Type 2 diabetes, insulin requiring, much improved. 6. Chronic obstructive pulmonary disease, clinically quiescent. 7. Benign prostatic hypertrophy for which he continues to be on Flomax; however, he continues to retain urine and we have placed an indwelling Aguilar catheter. 8. Hypertension, well controlled, on amlodipine 9. Peripheral vascular disease, status post stenting of his right common femoral artery, is now on Plavix 75 mg once a day. 10. Anemia, normochromic, normocytic, most recent hemoglobin 7.6 and hematocrit 22, likely due to chronic kidney disease. 11. Depression, for which he is now on aripiprazole as well as Wellbutrin. PLAN: 1. To continue with IV antibiotic. 2. Continue with pain management. 3. Continue with local wound care. 4. He will be discharged tomorrow to [facility]. SALINA TERRAZAS MD DR: DIXIE/summer JOB#: [id number] / [id number]
[2016-08-04] MEDS: MEROPENEM 500 MG in IV NORMAL SALINE 50ML 50 ML IV SCH ×2 (03:39→11:03)
[2016-08-04 04:48] VITALS: BP 127/66
[2016-08-04] MEDS: INSULIN ASPART 300 UNITS/3 ML INSULN.PEN SQ SCH ×2 (07:30→11:30)
[2016-08-04] MEDS: TAMSULOSIN 0.4 MG CAP.ER.24H. PO SCH (08:46)
[2016-08-04] MEDS: ASPIRIN ENTERIC COATED 81 MG TABLET.DR. PO SCH (08:46)
[2016-08-04] MEDS: LIDOCAINE (700MG/PATCH) PATCH. TP SCH (08:46)
[2016-08-04] MEDS: amLODIPine BESYLATE 10 MG TABLET PO SCH (08:46)
[2016-08-04] MEDS: ACETAMINOPHEN 325 MG TABLET PO PRN (08:46)
[2016-08-04] MEDS: ARIPiprazole 5 MG TABLET PO SCH (08:46)
[2016-08-04] MEDS: ASCORBIC ACID 500 MG TABLET PO SCH (08:47)
[2016-08-04] MEDS: buPROPion XL 300 MG TAB.ER.24H. PO SCH (08:47)
[2016-08-04] MEDS: CLOPIDOGREL BISULFATE 75 MG TABLET PO SCH (08:47)
[2016-08-04] MEDS: MULTIVITAMIN with MINERAL TABLET. PO SCH (08:47)
[2016-08-04] MEDS: DRONABINOL 2.5 MG CAPSULE PO SCH (11:03)
[2016-08-04 11:43] VITALS: BP 144/69
[2016-08-04] MEDS ORDERED: VANCOMYCIN 1.25 GM in IV NORMAL SALINE 250ML 250 ML IV SCH (20:00)
--- NOTE | 2016-08-04 20:25 | DS ---
DATE OF DISCHARGE: 08/04/2016 DISPOSITION: [facility] for continued care and IV antibiotics. DISCHARGE DIAGNOSES: 1. Acute kidney injury, which has resolved with IV fluids. 2. Hyperkalemia, resolved. 3. Right foot osteomyelitis, on vancomycin and meropenem. 4. PICC line status. 5. Hyperlipidemia. 6. Type 2 diabetes, improving, controlled. 7. Chronic obstructive pulmonary disease. 8. Hypertension, controlled. 9. Multiple wounds on the right foot and heel. 10. Peripheral vascular disease status post stenting of his right common femoral artery. 11. Normochromic normocytic anemia. 12. Depression. 13. Pain management. HOSPITAL COURSE: A 76-year-old male who had been initially on the swing bed status and complained of severe pain in his right shoulder and was also found to be hyperkalemic and had acute kidney injury, also inflammatory markers were elevated and he was transferred to [address] [place] [address]. The patient had a bone scan showing multiple foci of abnormal activity basically in the right foot. He was started on IV antibiotics. He continued on wound care. It was decided that he would benefit from going to [facility] and will be transferred there today. DISCHARGE VITAL SIGNS: Blood pressure 127/66, temperature 98.1, pulse 87 and pulse ox is 94% on room air. LABORATORY DATA: No new labs to check. PLAN: Transfer to [facility] and will continue under the care of Dr. Espinosa. CORNELIA CABRERA DO DR: MARGI/summer JOB#: [id number] / [id number]
--- NOTE | 2016-08-04 23:38 | PN ---
DATE: 08/03/2016 PSYCHIATRIC PROGRESS NOTE This note is late entry of 08/03/2016, covers elements not covered in my initial note. SUBJECTIVE: Discussed with nursing staff, reviewed the chart. The patient was seen individually. He has been more awake and alert during the day, still has memory deficits, wants to go home, but more accepting of his situation and needs. MENTAL STATUS EXAMINATION: Lying in bed, late in the evening somewhat tired. Speech has some latency, coherent. Abstraction fair, computation impaired, language function intact, attention span short. Mood and affect remains somewhat depressed, but improved. No suicidal or homicidal ideation. LABORATORY DATA: Reviewed. IMPRESSION: Major neurocognitive disorder, Alzheimer, vascular with depression, in partial remission; major depressive disorder in partial remission. PLAN: Continue current psychotropics including Abilify and Wellbutrin, may need to increase Wellbutrin further if needed, but for now it seems adequate. BETH OSPINA MD DR: MONICO/summer JOB#: [id number] / [id number]
== END 2016-08-04 12:58 | DRG 682 ==
LOC: 1 SOUTH 15:53
PROVIDERS: ADMIT Internal Medicine; ATTEND Internal Medicine
PROC: 02HV33Z Insertion of Infusion Device into Superior Vena Cava, Percutaneous Approach (ICD-10-PCS; principal; 2016-07-31)
DX: N17.9 Acute kidney failure, unspecified (principal); E43 Unspecified severe protein-calorie malnutrition; M86.8X7 Other osteomyelitis, ankle and foot; E87.5 Hyperkalemia; D63.1 Anemia in chronic kidney disease; E11.22 Type 2 diabetes mellitus with diabetic chronic kidney disease; E11.51 Type 2 diabetes mellitus with diabetic peripheral angiopathy without gangrene; E78.5 Hyperlipidemia, unspecified; F01.50 Vascular dementia, unspecified severity, without behavioral disturbance, psychotic disturbance, mood disturbance, and anxiety; F02.80 Dementia in other diseases classified elsewhere, unspecified severity, without behavioral disturbance, psychotic disturbance, mood disturbance, and anxiety; F17.200 Nicotine dependence, unspecified, uncomplicated; F32.4 Major depressive disorder, single episode, in partial remission; F41.9 Anxiety disorder, unspecified; G30.9 Alzheimer's disease, unspecified; I12.9 Hypertensive chronic kidney disease with stage 1 through stage 4 chronic kidney disease, or unspecified chronic kidney disease; I48.91 Unspecified atrial fibrillation; J44.9 Chronic obstructive pulmonary disease, unspecified; M10.9 Gout, unspecified; N18.9 Chronic kidney disease, unspecified; N40.1 Benign prostatic hyperplasia with lower urinary tract symptoms; K57.90 Diverticulosis of intestine, part unspecified, without perforation or abscess without bleeding; M25.511 Pain in right shoulder; R33.8 Other retention of urine; Z96.643 Presence of artificial hip joint, bilateral; S91.301A Unspecified open wound, right foot, initial encounter; X58.XXXA Exposure to other specified factors, initial encounter; Y93.89 Activity, other specified; Y92.89 Other specified places as the place of occurrence of the external cause; Y99.8 Other external cause status; Z79.02 Long term (current) use of antithrombotics/antiplatelets; Z79.4 Long term (current) use of insulin; Z79.899 Other long term (current) drug therapy; Z82.49 Family history of ischemic heart disease and other diseases of the circulatory system; Z83.3 Family history of diabetes mellitus; Z86.73 Personal history of transient ischemic attack (TIA), and cerebral infarction without residual deficits; Z68.32 Body mass index [BMI] 32.0-32.9, adult; E11.69 Type 2 diabetes mellitus with other specified complication
CPT/HCPCS: 36415; 71010; 78315; 80048; 80053; 80202; 82947; 85027; 96374; A9503; J2185; J3370; J7040; J7050; Q0167; 97110; 97530; 97535; J7030